=== PATIENT | male | born 1950 | race Hispanic/Latino ===

== ENCOUNTER → 2018-06-15 | Outpatient (CLI) | payer OTHER ==
[~2018-06-15] MED LIST: GADOBENATE DIMEGLUMINE 1 ML IV ONE
[2018-06-15 13:43] LABS: BLOOD UREA NITROGEN 16 mg/dL (7-26); BUN/CREATININE RATIO 19 (6-25); CREATININE, SERUM 0.85 mg/dL (0.72-1.25); EST GLOMERULAR FILTRATION RATE > 60 ML/MIN (60-)
--- NOTE | 2018-06-15 21:16 | Diagnostic Imaging Report ---
Bone Scan, delayed phase INDICATION: Enlarged prostate; elevated PSA COMPARISON: None REPORT: Approximately 3 hours following intravenous administration of 27 mCi of Tc-99m MDP, delayed total body images in the anterior and posterior projections and selected spot images were obtained. Markedly increased tracer is seen in the right sternoclavicular joint. Diffusely increased tracer is seen in the mid to lower thoracic spine. Otherwise, distribution of tracer activity is unremarkable throughout the skeletal system. No abnormal accumulation of tracer is seen in the soft tissues or urinary tract. IMPRESSION: No scan evidence of metastatic bone disease. Severe degenerative changes are present in the right sternoclavicular joint and in the thoracic spine. Signed by: Dr. Hali Cuevas M.D. on 06/15/2018 9:13 PM
--- NOTE | 2018-06-16 09:10 | Diagnostic Imaging Report ---
EXAM: MRI Pelvis WITHOUT and WITH Contrast INDICATION: \S\ELEVATED PSA COMPARISON: None. TECHNIQUE: Multiplanar and multisequence imaging was performed of the pelvis from below the inferior poles of the kidneys to the lesser trochanters without and with contrast. T1-weighted, T2-weighted images, T1-weighted in and [id number]. Dynamic, post gadolinium T1-weighted spoiled gradient echo scans. Routine protocol was performed. IV Contrast: 15 mL of MultiHance gadolinium Oral Contrast: None Medications: None COMPLICATIONS: None FINDINGS: This is a MR pelvis without dedicated MR prostate protocol. PROSTATE: Size of total gland: 4.5 x 5.2 x 3.7 cm. Transitional zone: Not well visualized. BPH: No significant BPH Median lobe: 1.0 x 1.4 cm. Previous TURP: None Focal calcifications are difficult to visualize by MRI On arterial phase postcontrast series 9: 3.5 x 3.1 cm infiltrative mass involving the left base peripheral zone medially and laterally. This extends to the right medial base prostate. This also extends centrally into the transitional zone. There is extracapsular extension involving the neurovascular bundles. This also extends into the left seminal vesicle and likely into portions of the right seminal vesicle. SEMINAL VESICLES: Malignant involvement involving the left seminal vesicle and likely portions of the right seminal vesicle. BLADDER: Hughes catheter is in place. Otherwise unremarkable. GI TRACT: No abnormal distention, wall thickening, or evidence of bowel obstruction. There are diverticula within the colon without evidence of diverticulitis. Appendix is normal. RECTUM: Rectum and mesorectum are unremarkable. LYMPH NODES: Left internal iliac adenopathy measuring 1.6 x 2.2 cm (series 9, image 97) and 1.5 x 1.5 cm (series 9 image 93). VESSELS: Unremarkable. PERITONEUM / RETROPERITONEUM: No free air or fluid. BONES: Unremarkable. SOFT TISSUES: Unremarkable. IMPRESSION: 1. 3.5 x 3.1 cm infiltrative mass involving the left base of the prostate peripheral zone extends centrally into the transitional zone and into the right peripheral zone. 2. Extra capsular extension with neurovascular bundle involvement. Involvement of the left seminal vesicle and likely the right seminal vesicle. 3. Left internal iliac lymphadenopathy. Signed by: Dr. Ray Serna M.D. on 06/16/2018 9:07 AM
== END ==
LOC: NM 12:42
PROVIDERS: ATTEND Urology
DX: R97.20 Elevated prostate specific antigen [PSA] (principal)
CPT/HCPCS: 36415; 72197; 78306; 82565; 84520; A9503

== ENCOUNTER → 2018-06-24 | Outpatient (CLI) | payer OTHER ==
[~2018-06-24] MED LIST changes: -GADOBENATE DIMEGLUMINE 1 ML IV ONE; +IOPAMIDOL 370 MG/ML 200 ML INFUS..BTL INJ ONE; +SODIUM CHLORIDE 0.9% 50ML 50 ML ONE
--- NOTE | 2018-06-24 16:05 | Diagnostic Imaging Report ---
EXAMINATION: CT of the abdomen and pelvis with contrast. TECHNIQUE: Spiral CT images of the pelvis were performed from the iliac crests to the lesser trochanters after the intravenous administration of 100 cc Isovue-370 Coronal and sagittal reformatted images were obtained. COMPARISON: MRI pelvis 06/15/2018 CLINICAL HISTORY:Elevated PSA DISCUSSION: ABDOMEN/PELVIS: PELVIC ORGANS/BLADDER: The urinary bladder is collapsed around a Hughes catheter with wall thickening. 3.5 cm enhancing mass centered in the left hemiprostate with extension to the seminal vesicles and bladder base is better delineated on comparison MRI examination. Hazy stranding in the periprosthetic and perivesicular fat is again noted. PERITONEUM/RETROPERITONEUM: No free air or fluid. LYMPH NODES: Avidly enhancing bilateral internal and left external iliac lymph nodes are noted measuring up to 2 cm short axis. One of the left iliac chain lymph nodes appears centrally necrotic, as seen on series 2 image 25. Right internal iliac lymph node chain measure up to 1.3 cm short axis (series 2 image 30). VESSELS: Mild atherosclerotic calcification of the iliac arterial systems without significant stenosis. GI TRACT: Visualized portions of the large bowel are notable for innumerable sigmoid diverticula without wall thickening or adjacent inflammation. No small bowel dilatation to suggest obstruction. BONES AND SOFT TISSUE: No osseous destructive lesions. Degenerative disc changes and facet arthropathy at the lumbosacral junction. Right-sided L5 pars interarticularis defect. No focal soft tissue abnormalities. IMPRESSION: Overall stable findings of presumed locally invasive prostate adenocarcinoma with metastatic regional lymphadenopathy when accounting for modality differences compared to MRI of the pelvis 06/15/2018. Urinary bladder wall thickening is likely reactive to presence of Hughes catheter. Correlation with urinalysis may be of benefit. Large bowel diverticulosis without evidence of diverticulitis. Signed by: Dr. Arslan Eaton M.D. on 06/24/2018 4:02 PM
== END ==
LOC: CT 14:14
PROVIDERS: ATTEND Urology
DX: R97.20 Elevated prostate specific antigen [PSA] (principal)
CPT/HCPCS: 72193; Q9967

== ENCOUNTER → 2018-07-05 | Outpatient (CLI) | payer OTHER ==
[~2018-07-05] MED LIST changes: +FENTANYL CITRATE/PF 100MCG/2 ML INJ ONE; +GELATIN SPONGE 12-7MM ONE; -IOPAMIDOL 370 MG/ML 200 ML INFUS..BTL INJ ONE; +LIDOCAINE HCL 1% LOCAL INJ 20 ML VIAL ONE; +MIDAZOLAM HCL 2 MG/2 ML VIAL ONE; +SODIUM CHLORIDE 0.9% 500ML 500 ML ONE; -SODIUM CHLORIDE 0.9% 50ML 50 ML ONE
--- NOTE | 2018-07-05 11:47 | Diagnostic Imaging Report ---
Date and Time: 07/05/2018 Procedure: CT-guided fine-needle aspiration and core biopsies of a right external iliac lymph node machine operator hop picker: Dr. Eaton Pre-operative diagnosis: Prostate cancer, pelvic lymphadenopathy Post-operative diagnosis: Prostate cancer, pelvic lymphadenopathy Conscious Sedation: Versed 1 mg and Fentanyl 50 mcg. The patient's heart rate and pulse oximetry were continuously monitored by the interventional radiology nurse. Blood pressure was monitored at 5 minute intervals. Total intra service time for sedation: 45 minutes Additional Medications: Lidocaine 1% for local anesthesia Fluoroscopy time: 0 Contrast used: None Estimated blood loss: Less than 10 cc Specimens: Fine-needle aspiration specimens x2, core biopsy specimens x6 Implants: None Blood products administered: None Condition at completion of procedure: Stable Disposition: Radiology holding DISCUSSION: Informed consent for the procedure was obtained and documented in the medical record after discussion of risks and benefits. The patient was placed in the supine position on the CT couch. A marker grid over the right anterior hip was placed and limited CT evaluation of the pelvis confirmed a suitable percutaneous approach to a mildly prominent, and enhancing right external iliac lymph node identified on comparison pelvic CT 06/24/2018. The overlying skin was prepped and draped in the standard sterile fashion. 1% lidocaine was infiltrated into the skin and subcutaneous tissues for local anesthesia. Then under intermittent CT guidance, a 16-gauge needle guide was advanced to the lateral margin of the lymph node. Subsequently, 2 fine-needle aspiration specimens were obtained coaxially using 20-gauge Chiba needles. Specimens were submitted to on-site cytopathology personnel. Then a total of 6 core biopsy specimens were obtained using an 18-gauge, 2 cm throw core biopsy apparatus, with sales representative graphic art CT images documenting biopsy needle trough position within the lymph node stored to the medical record. Specimens were submitted in formalin for histologic analysis. At the conclusion of sampling the needle was removed and a sterile dressing was applied. The patient tolerated the procedure well without immediate complication. FINDINGS: Mildly prominent right external iliac lymph node. IMPRESSION: Successful CT-guided fine-needle aspiration and core biopsy of a mildly enlarged right external iliac lymph node in the setting of prostate cancer. Signed by: Dr. Arslan Eaton M.D. on 07/05/2018 11:44 AM
--- NOTE | 2018-07-05 11:47 | Diagnostic Imaging Report ---
Date and Time: 07/05/2018 Procedure: CT-guided fine-needle aspiration and core biopsies of a right external iliac lymph node steam tank operator: Dr. Eaton Pre-operative diagnosis: Prostate cancer, pelvic lymphadenopathy Post-operative diagnosis: Prostate cancer, pelvic lymphadenopathy Conscious Sedation: Versed 1 mg and Fentanyl 50 mcg. The patient's heart rate and pulse oximetry were continuously monitored by the interventional radiology nurse. Blood pressure was monitored at 5 minute intervals. Total intra service time for sedation: 45 minutes Additional Medications: Lidocaine 1% for local anesthesia Fluoroscopy time: 0 Contrast used: None Estimated blood loss: Less than 10 cc Specimens: Fine-needle aspiration specimens x2, core biopsy specimens x6 Implants: None Blood products administered: None Condition at completion of procedure: Stable Disposition: Radiology holding DISCUSSION: Informed consent for the procedure was obtained and documented in the medical record after discussion of risks and benefits. The patient was placed in the supine position on the CT couch. A marker grid over the right anterior hip was placed and limited CT evaluation of the pelvis confirmed a suitable percutaneous approach to a mildly prominent, and enhancing right external iliac lymph node identified on comparison pelvic CT 06/24/2018. The overlying skin was prepped and draped in the standard sterile fashion. 1% lidocaine was infiltrated into the skin and subcutaneous tissues for local anesthesia. Then under intermittent CT guidance, a 16-gauge needle guide was advanced to the lateral margin of the lymph node. Subsequently, 2 fine-needle aspiration specimens were obtained coaxially using 20-gauge Chiba needles. Specimens were submitted to on-site cytopathology personnel. Then a total of 6 core biopsy specimens were obtained using an 18-gauge, 2 cm throw core biopsy apparatus, with welding equipment sales representative CT images documenting biopsy needle trough position within the lymph node stored to the medical record. Specimens were submitted in formalin for histologic analysis. At the conclusion of sampling the needle was removed and a sterile dressing was applied. The patient tolerated the procedure well without immediate complication. FINDINGS: Mildly prominent right external iliac lymph node. IMPRESSION: Successful CT-guided fine-needle aspiration and core biopsy of a mildly enlarged right external iliac lymph node in the setting of prostate cancer. Signed by: Dr. Arslan Eaton M.D. on 07/05/2018 11:44 AM
--- NOTE | 2018-07-05 11:47 | Diagnostic Imaging Report ---
Date and Time: 07/05/2018 Procedure: CT-guided fine-needle aspiration and core biopsies of a right external iliac lymph node drum barker operator: Dr. Eaton Pre-operative diagnosis: Prostate cancer, pelvic lymphadenopathy Post-operative diagnosis: Prostate cancer, pelvic lymphadenopathy Conscious Sedation: Versed 1 mg and Fentanyl 50 mcg. The patient's heart rate and pulse oximetry were continuously monitored by the interventional radiology nurse. Blood pressure was monitored at 5 minute intervals. Total intra service time for sedation: 45 minutes Additional Medications: Lidocaine 1% for local anesthesia Fluoroscopy time: 0 Contrast used: None Estimated blood loss: Less than 10 cc Specimens: Fine-needle aspiration specimens x2, core biopsy specimens x6 Implants: None Blood products administered: None Condition at completion of procedure: Stable Disposition: Radiology holding DISCUSSION: Informed consent for the procedure was obtained and documented in the medical record after discussion of risks and benefits. The patient was placed in the supine position on the CT couch. A marker grid over the right anterior hip was placed and limited CT evaluation of the pelvis confirmed a suitable percutaneous approach to a mildly prominent, and enhancing right external iliac lymph node identified on comparison pelvic CT 06/24/2018. The overlying skin was prepped and draped in the standard sterile fashion. 1% lidocaine was infiltrated into the skin and subcutaneous tissues for local anesthesia. Then under intermittent CT guidance, a 16-gauge needle guide was advanced to the lateral margin of the lymph node. Subsequently, 2 fine-needle aspiration specimens were obtained coaxially using 20-gauge Chiba needles. Specimens were submitted to on-site cytopathology personnel. Then a total of 6 core biopsy specimens were obtained using an 18-gauge, 2 cm throw core biopsy apparatus, with customer field representative CT images documenting biopsy needle trough position within the lymph node stored to the medical record. Specimens were submitted in formalin for histologic analysis. At the conclusion of sampling the needle was removed and a sterile dressing was applied. The patient tolerated the procedure well without immediate complication. FINDINGS: Mildly prominent right external iliac lymph node. IMPRESSION: Successful CT-guided fine-needle aspiration and core biopsy of a mildly enlarged right external iliac lymph node in the setting of prostate cancer. Signed by: Dr. Arslna Eaton M.D. on 07/05/2018 11:44 AM
== END ==
LOC: CT 07:52
PROVIDERS: ATTEND Urology
DX: R97.20 Elevated prostate specific antigen [PSA] (principal)
CPT/HCPCS: 10022; 38510; 77012; 88112; 88304; 88305; J2001; J2250; J7040; 38505; 88172; 88173; 88342; 99152; 99153

== ENCOUNTER 2018-07-16 21:33 | Emergency (ER) | payer OTHER ==
[~2018-07-16] VITALS: Ht 175.3 cm; Wt 74.8 kg
--- OUTSIDE RECORDS SUMMARY | 2018-07-16 21:36 | XMS REPORT ---
Author Author [facility] Address Unknown Phone Unavailable Care Team Providers Care Hospice Administrator Name Role Phone ARACELI CASAS Unavailable Unavailable Payers Payer Name Policy Type Policy Number Effective Date Expiration Date Problems This patient has no known problems. Allergies, Adverse Reactions, Alerts Allergy Name Allergy Type Status Severity Reaction(s) Onset Date Inactive Date Treating Clinician Comments No Known Allergies DA Active U 2018-06-14 00:00:00 No Known Allergies DA Active U 2018-06-13 00:00:00 Medications This patient has no known medications. Results Test Description Test Time Test Comments Text Results Atomic Results Result Comments BIOPSY LYMPH NODE 2018-07-05 11:36:00 [place] [address] Patient Name: OVIDIO MONTEJO MR #: [id number] : 1950 Age/Sex: 68/M Req #: [id number] [facility] Physician: Ordered by: ARACELI CASAS MD Report #: [id number] Location: [place] Room/Bed: Procedure: [id number] IR/BIOPSY LYMPH NODE Exam Date: 07/05/18 Exam Time: 941 REPORT STATUS: Signed Date and Time: 07/05/2018 Procedure: CT-guided fine-needle aspiration and core biopsies of a right external iliac lymph node chopper operator: Dr. Petit Pre-operative diagnosis: Prostate cancer, pelvic lymphadenopathy Post-operative diagnosis: Prostate cancer, pelvic lymphadenopathy Conscious Sedation: Versed 1 mg and Fentanyl 50 mcg. The patient's heart rate and pulse oximetry were continuously monitored by the interventional radiology nurse. Blood pressure was monitored at 5 minute intervals. Total intra service time for sedation: 45 minutes Additional Medications: Lidocaine 1% for local anesthesia Fluoroscopy time: 0 Contrast used: None Estimated blood loss: Less than 10 cc Specimens: Fine-needle aspiration specimens x2, core biopsy specimens x6 Implants: None Blood products administered: None Condition at completion of procedure: Stable Disposition: Radiology holding DISCUSSION: Informed consent for the procedure was obtained and documented in the medical record after discussion of risks and benefits. The patient was placed in the supine position on the CT couch. A marker grid over the right anterior hip was placed and limited CT evaluation of the pelvis confirmed a suitable percutaneous approach to a mildly prominent, and enhancing right external iliac lymph node identified on comparison pelvic CT 06/24/2018. The overlying skin was prepped and draped in the standard sterile fashion. 1% lidocaine was infiltrated into the skin and subcutaneous tissues for local anesthesia. Then under intermittent CT guidance, a 16-gauge needle guide was advanced to the lateral margin of the lymph node. Subsequently, 2 fine-needle aspiration specimens were obtained coaxially using 20-gauge Chiba needles. Specimens were submitted to on-site cytopathology personnel. Then a total of 6 core biopsy specimens were obtained using an 18-gauge, 2 cm throw core biopsy apparatus, with residential sales representative CT images documenting biopsy needle trough position within the lymph node stored to the medical record. Specimens were submitted in formalin for histologic analysis. At the conclusion of sampling the needle was removed and a sterile dressing was applied. The patient tolerated the procedure well without immediate complication. FINDINGS: Mildly prominent right external iliac lymph node. IMPRESSION: Successful CT- guided fine-needle aspiration and core biopsy of a mildly enlarged right external iliac lymph node in the setting of prostate cancer. Signed by: Dr. Timbo Petit M.D. on 07/05/2018 11:44 AM Dictated By: TIMBO PETIT MD 1144 Transcribed By: CLEM on 07/05/18 1144 COPY TO: ARACELI CASAS MD CT GUIDED BIOPSY/ASPIR/INJ/MISTI 2018-07-05 11:36:00 [place] [address] Patient Name: OVIDIO MONTEJO MR #: [id number] : 1950 Age/Sex: 68/M Req #: [id number] Adm Physician: Ordered by: ARACELI CASAS MD Report #: [id number] Location: CT Room/Bed: Procedure: [id number] CT/CT GUIDED BIOPSY/ASPIR/INJ/MISTI Exam Date: 07/05/18 Exam Time: 941 REPORT STATUS: Signed Date and Time: 07/05/2018 Procedure: CT-guided fine-needle aspiration and core biopsies of a right external iliac lymph node chopper operator: Dr. Petit Pre-operative diagnosis: Prostate cancer, pelvic lymphadenopathy Post-operative diagnosis: Prostate cancer, pelvic lymphadenopathy Conscious Sedation: Versed 1 mg and Fentanyl 50 mcg. The patient's heart rate and pulse oximetry were continuously monitored by the interventional radiology nurse. Blood pressure was monitored at 5 minute intervals. Total intra service time for sedation: 45 minutes Additional Medications: Lidocaine 1% for local anesthesia Fluoroscopy time: 0 Contrast used: None Estimated blood loss: Less than 10 cc Specimens: Fine-needle aspiration specimens x2, core biopsy specimens x6 Implants: None Blood products administered: None Condition at completion of procedure: Stable Disposition: Radiology holding DISCUSSION: Informed consent for the procedure was obtained and documented in the medical record after discussion of risks and benefits. The patient was placed in the supine position on the CT couch. A marker grid over the right anterior hip was placed and limited CT evaluation of the pelvis confirmed a suitable percutaneous approach to a mildly prominent, and enhancing right external iliac lymph node identified on comparison pelvic CT 06/24/2018. The overlying skin was prepped and draped in the standard sterile fashion. 1% lidocaine was infiltrated into the skin and subcutaneous tissues for local anesthesia. Then under intermittent CT guidance, a 16-gauge needle guide was advanced to the lateral margin of the lymph node. Subsequently, 2 fine-needle aspiration specimens were obtained coaxially using 20-gauge Chiba needles. Specimens were submitted to on-site cytopathology personnel. Then a total of 6 core biopsy specimens were obtained using an 18-gauge, 2 cm throw core biopsy apparatus, with residential sales representative CT images documenting biopsy needle trough position within the lymph node stored to the medical record. Specimens were submitted in formalin for histologic analysis. At the conclusion of sampling the needle was removed and a sterile dressing was applied. The patient tolerated the procedure well without immediate complication. FINDINGS: Mildly prominent right external iliac lymph node. IMPRESS ION: Successful CT-guided fine-needle aspiration and core biopsy of a mildly enlarged right external iliac lymph node in the setting of prostate cancer. Signed by: Dr. Timbo Petit M.D. on 07/05/2018 11:44 AM Dictated By: TIMBO PETIT MD 1144 Transcribed By: CLEM on 07/05/18 1144 COPY TO: ARACELI CASAS MD FNA WITH IMAGE GUIDANCE 2018-07-05 11:36:00 [place] [address] Patient Name: OVIDIO MONTEJO MR #: [id number] : 1950 Age/Sex: 68/M Req #: [id number] Adm Physician: Ordered by: ARACELI CASAS MD Report #: [id number] Location: [place] Room/Bed: Procedure: [id number] IR/FNA WITH IMAGE GUIDANCE Exam Date: 07/05/18 Exam Time: 941 REPORT STATUS: Signed Date and Time: 07/05/2018 Procedure: CT-guided fine- needle aspiration and core biopsies of a right external iliac lymph node chopper operator: Dr. Petit Pre-operative diagnosis: Prostate cancer, pelvic lymphadenopathy Post-operative diagnosis: Prostate cancer, pelvic lymphadenopathy Conscious Sedation: Versed 1 mg and Fentanyl 50 mcg. The patient's heart rate and pulse oximetry were continuously monitored by the interventional radiology nurse. Blood pressure was monitored at 5 minute intervals. Total intra service time for sedation: 45 minutes Additional Medications: Lidocaine 1% for local anesthesia Fluoroscopy time: 0 Contrast used: None Estimated blood loss: Less than 10 cc Specimens: Fine-needle aspiration specimens x2, core biopsy specimens x6 Implants: None Blood products administered: None Condition at completion of procedure: Stable Disposition: Radiology holding DISCUSSION: Informed consent for the procedure was obtained and documented in the medical record after discussion of risks and benefits. The patient was placed in the supine position on the CT couch. A marker grid over the right anterior hip was placed and limited CT evaluation of the pelvis confirmed a suitable percutaneous approach to a mildly prominent, and enhancing right external iliac lymph node identified on comparison pelvic CT 06/24/2018. The overlying skin was prepped and draped in the standard sterile fashion. 1% lidocaine was infiltrated into the skin and subcutaneous tissues for local anesthesia. Then under intermittent CT guidance, a 16-gauge needle guide was advanced to the lateral margin of the lymph node. Subsequently, 2 fine-needle aspiration specimens were obtained coaxially using 20-gauge Chiba needles. Specimens were submitted to on-site cytopathology personnel. Then a total of 6 core biopsy specimens were obtained using an 18-gauge, 2 cm throw core biopsy apparatus, with residential sales representative CT images documenting biopsy needle trough position within the lymph node stored to the medical record. Specimens were submitted in formalin for histologic analysis. At the conclusion of sampling the needle was removed and a sterile dressing was applied. The patient tolerated the procedure well without immediate complication. FINDINGS: Mildly prominent right external iliac lymph node. IMPRESSION: Successful CT- guided fine-needle aspiration and core biopsy of a mildly enlarged right external iliac lymph node in the setting of prostate cancer. Signed by: Dr. Timbo Petit M.D. on 07/05/2018 11:44 AM Dictated By: TIMBO PETIT MD 1144 Transcribed By: CLEM on 07/05/18 1144 COPY TO: ARACELI CASAS MD CT PELVIS W 2018-06-24 15:52:00 [place] [address] Patient Name: OVIDIO MONTEJO MR #: [id number] : 1950 Age/Sex: 68/M Req #: [id number] Adm Physician: Ordered by: ARACELI CASAS MD Report #: [id number] Location: CT Room/Bed: Procedure: [id number] CT/CT PELVIS W Exam Date: 06/24/18 Exam Time: 1515 REPORT STATUS: Signed EXAMINATION: CT of the abdomen and pelvis with contrast. TECHNIQUE: Spiral CT images of the pelvis were performed from the iliac crests to the lesser trochanters after the intravenous administration of 100 cc Isovue-370 Coronal and sagittal reformatted images were obtained. COMPARISON: MRI pelvis 06/15/2018 CLINICAL HISTORY:Elevated PSA DISCUSSION: ABDOMEN/PELVIS: PELVIC ORGANS/BLADDER: The urinary bladder is collapsed around a Hughes catheter with wall thickening. 3.5 cm enhancing mass centered in the left hemiprostate with extension to the seminal vesicles and bladder base is better delineated on comparison MRI examination. Hazy stranding in the periprosthetic and perivesicular fat is again noted. PERITONEUM/RETROPERITONEUM: No free air or fluid. LYMPH NODES: Avidly enhancing bilateral internal and left external iliac lymph nodes are noted measuring up to 2 cm short axis. One of the left iliac chain lymph nodes appears centrally necrotic, as seen on series 2 image 25. Right internal iliac lymph node chain measure up to 1.3 cm short axis (series 2 image 30). VESSELS: Mild atherosclerotic calcification of the iliac arterial systems without significant stenosis. GI TRACT: Visualized portions of the large bowel are notable for innumerable sigmoid diverticula without wall thickening or adjacent inflammation. No small bowel dilatation to suggest obstruction. BONES AND SOFT TISSUE: No osseous destructive lesions. Degenerative disc changes and facet arthropathy at the lumbosacral junction. Right-sided L5 pars interarticularis defect. No focal soft tissue abnormalities. IMPRESSION: Overall stable findings of presumed locally invasive prostate adenocarcinoma with metastatic regional lymphadenopathy when accounting for modality differences compared to MRI of the pelvis 06/15/2018. Urinary bladder wall thickening is likely reactive to presence of Hughes catheter. Correlation with urinalysis may be of benefit. Large bowel diverticulosis without evidence of diverticulitis. Signed by: Dr. Timbo Petit M.D. on 06/24/2018 4:02 PM Dictated By: TIMBO PETIT MD 160 Transcribed By: CLEM on 06/24/18 1602 COPY TO: ARACELI CASAS MD MRI PELVIS WOW 2018-06-16 08:52:00 [place] [address] Patient Name: OVIDIO MONTEJO MR #: [id number] : 1950 Age/Sex: 68/M Req #: [id number] Adm Physician: Ordered by: ARACELI CASAS MD Report #: [id number] Location: [place] Room/Bed: Procedure: [id number] MRI/MRI PELVIS WOW Exam Date: Exam Time: REPORT STATUS: Signed EXAM: MRI Pelvis WITHOUT and WITH Contrast INDICATION: S ELEVATED PSA COMPARISON: None. TECHNIQUE: Multiplanar and multisequence imaging was performed of the pelvis from below the inferior poles of the kidneys to the lesser trochanters without and with contrast. T1-weighted, T2-weighted images, T1-weighted in and [id number]. Dynamic, post gadolinium T1-weighted spoiled gradient echo scans. Routine protocol was performed. IV Contrast: 15 mL of MultiHance gadolinium Oral Contrast: None Medications: None COMPLICATIONS: None FINDINGS: This is a MR pelvis without dedicated MR prostate protocol. PROSTATE: Size of total gland: 4.5 x 5.2 x 3.7 cm. Transitional zone: Not well visualized. BPH: No significant BPH Median lobe: 1.0 x 1.4 cm. Previous TURP: None Focal calcifications are difficult to visualize by MRI On arterial phase postcontrast series 9: 3.5 x 3.1 cm infiltrative mass involving the left base peripheral zone medially and laterally. This extends to the right medial base prostate. This also extends centrally into the transitional zone. There is extracapsular extension involving the neurovascular bundles. This also extends into the left seminal vesicle and likely into portions of the right seminal vesicle. SEMINAL VESICLES: Malignant involvement involving the left seminal vesicle and likely portions of the right seminal vesicle. BLADDER: Hughes catheter is in place. Otherwise unremarkable. GI TRACT: No abnormal distention, wall thickening, or evidence of bowel obstruction. There are diverticula within the colon without evidence of diverticulitis. Appendix is normal. RECTUM: Rectum and mesorectum are unremarkable. LYMPH NODES: Left internal iliac adenopathy measuring 1.6 x 2.2 cm (series 9, image 97) and 1.5 x 1.5 cm (series 9 image 93). VESSELS: Unremarkable. PERITONEUM / RETROPERITONEUM: No free air or fluid. BONES: Unremarkable. SOFT TISSUES: Unremarkable. IMPRESSION: 1. 3.5 x 3.1 cm infiltrative mass involving the left base of the prostate peripheral zone extends centrally into the transitional zone and into the right peripheral zone. 2. Extra capsular extension with neurovascular bundle involvement. Involvement of the left seminal vesicle and likely the right seminal vesicle. 3. Left internal iliac lymphadenopathy. Signed by: Dr. Ale Ponce M.D. on 06/16/2018 9:07 AM Dictated By: ALE PONCE MD 6 Transcribed By: CLEM on 06/16/18906 COPY TO: ARACELI CASAS MD BONE and/or JOINT WHOLE BODY 2018-06-15 21:08:00 [place] [address] Patient Name: OVIDIO MONTEJO MR #: [id number] : 1950 Age/Sex: 68/M Req #: [id number] [facility] Physician: Ordered by: ARACELI CASAS MD Report #: [id number] Location: [place] Room/Bed: Procedure: [id number] NM/BONE and/or JOINT WHOLE BODY Exam Date: 06/15/18 Exam Time: 1300 REPORT STATUS: Signed Bone Scan, delayed phase INDICATION: Enlarged prostate; elevated PSA COMPARISON: None REPORT: Approximately 3 hours following intravenous administration of 27 mCi of Tc-99m MDP, delayed total body images in the anterior and posterior projections and selected spot images were obtained. Markedly increased tracer is seen in the right sternoclavicular joint. Diffusely increased tracer is seen in the mid to lower thoracic spine. Otherwise, distribution of tracer activity is unremarkable throughout the skeletal system. No abnormal accumulation of tracer is seen in the soft tissues or urinary tract. IMPRESSION: No scan evidence of metastatic bone disease. Severe degenerative changes are present in the right sternoclavicular joint and in the thoracic spine. Signed by: Dr. Airam Cuevas M.D. on 06/15/2018 9:13 PM Dictated By: AIRAM CUEVAS MD 12 Transcribed By: CLEM on 06/15/182112 COPY TO: ARACELI CASAS MD
[2018-07-17 00:04] LABS: CLARITY,URINE CLOUDY (CLEAR); COLOR,URINE YELLOW (YELLOW)
[2018-07-17 00:05] LABS: BILIRUBIN,URINE NEGATIVE (NEGATIVE); KETONES,URINE NEGATIVE (NEGATIVE); LEUKOCYTE ESTERASE ,URINE 2+ (NEGATIVE); NITRITE,URINE POSITIVE (NEGATIVE); PROTEIN,URINE DIPSTICK 2+ (NEGATIVE); URINE UROBILINOGEN 0.2 mg/dL (0.2 - 1)
[2018-07-17 00:16] LABS: BACTERIA,URINE MANY /HPF; EPITHELIAL CELLS,URINE RARE /LPF; WBC,URINE (MAN) >50 /HPF (0-5)
[2018-07-17] MEDS ORDERED: CEFTRIAXONE SOD 1 GM VIAL IM ONE (00:30)
== END 2018-07-17 01:15 | disposition home or self-care (01) ==
LOC: ER 21:33
DX: R33.9 Retention of urine, unspecified (principal); N40.1 Benign prostatic hyperplasia with lower urinary tract symptoms; N30.91 Cystitis, unspecified with hematuria
CPT/HCPCS: 51702; 81001; 87086; 87186; 99282; J0696; 51700

== ENCOUNTER 2020-05-18 22:28 | Emergency (ER) | payer MEDICARE ==
[~2020-05-18] VITALS: Ht 175.3 cm; Wt 74.8 kg
--- NOTE | 2020-05-18 22:48 | NUR ---
PT TO RESTROOM COMPLETED TRIAGE.
--- OUTSIDE RECORDS SUMMARY | 2020-05-18 23:35 | XMS REPORT | Continuity of Care Document ---
Author Author [facility] t Organization [facility] Address [address] [place] [address] Phone Unavailable Care Team Providers Care [employer] Installer Name Role Phone ARACELI CASAS Attphys Unavailable Payers Payer Name Policy Type Policy Number Effective Date Expiration Date S ource Problems This patient has no known problems. Allergies, Adverse Reactions, Alerts Allergy Name Allergy Type Status Severity Reaction(s) Onset Date Inacti ve Date Treating Clinician Comments Source No Known Allergies DA Active U 2018-06-14 00:00:00 [facility] No Known Allergies DA Active U 2018-06-13 00:00:00 [facility] Medications This patient has no known medications. Procedures This patient has no known procedures. Results Test Description Test Time Test Comments Results Result Comments Source US TESTICULAR 2019-09-22 12:01:00 [facility] [address] [place] [address] Patient Name: OVIDIO MONTEJO MR #: [id number] : 1950 Age/Sex: 69/M Req #: [id number] Adm Physician: Ordered by: ARACELI CASAS MD Report #: [id number] Location: Room/Bed: Procedure: [id number] US/US TESTICULAR Exam Date: 09/22/19 Exam Time: 1053 REPORT STATUS: Signed Exam: Testicular ultrasound. Clinical History: Chronic testicular pain Findings: Sonographic evaluation of the testicles. Both testes are normal in echogenicity and size without intratesticular mass. Normal symmetric blood flow to both testes. No evidence of testicular torsion. Right: The right testicle measures 3.2 x 1.3 x 2.2 cm and appears unremarkable. The right epididymis measures 0.7 x 0.7 x 0.9 cm and appears unremarkable. Trace right hydrocele. No varicocele. Left: The left testicle measures 2.9 x 1.4 x 2.3 cm and appears unremarkable. The left epididymis measures 0.7 x 0.6 x 0.7 cm and appears unremarkable. Trace left hydrocele. No varicocele. Impression: No testicular torsion or intratesticular mass. Trace right and left hydrocele. Signed by: Merced Muro MD on 09/22/2019 12:03 PM Dictated By: MERCED MURO MD 7 Transcribed By: CLEM on 09/26/19907 COPY TO: ARACELI CASAS MD TESTICULAR DOPPLER [facility] 2019-09-22 12:01:00 [place] [address] Patient Name: OVIDIO MONTEJO MR #: [id number] : 1950 Age/Sex: 69/M Req #: [id number] Adm Physician: Ordered by: ARACELI CASAS MD Report #: [id number] Location: Room/Bed: Procedure: [id number] US/US TESTICULAR DOPPLER [facility] Exam Date: 09/22/19 Exam Time: 1053 REPORT STATUS: Signed Exam: Testicular ultrasound. Clinical History: Chronic testicular pain Findings: Sonographic evaluation of the testicles. Both testes are normal in echogenicity and size without intratesticular mass. Normal symmetric blood flow to both testes. No evidence of testicular torsion. Right: The right testicle measures 3.2 x 1.3 x 2.2 cm and appears unremarkable. The right epididymis measures 0.7 x 0.7 x 0.9 cm and appears unremarkable. Trace right hydrocele. No varicocele. Left: The left testicle measures 2.9 x 1.4 x 2.3 cm and appears unremarkable. The left epididymis measures 0.7 x 0.6 x 0.7 cm and appears unremarkable. Trace left hydrocele. No varicocele. Impression: No testicular torsion or intratesticular mass. Trace right and left hydrocele. Signed by: Merced Muro MD on 09/22/2019 12:03 PM Dictated By: MERCED MURO MD 7 Transcribed By: CLEM on 09/26/19907 COPY TO: ARACELI CASAS MD BIOPSY LYMPH NODE 2018-07-05 11:36:00 [place] [address] Patient Name: OVIDIO MONTEJO MR #: [id number] : 1950 Age/Sex: 68/M Req #: [id number] Adm Physician: Ordered by: ARACELI CASAS MD Report #: [id number] Location: [place] Room/Bed: Procedure: [id number] IR/BIOPSY LYMPH NODE Exam Date: 07/05/18 Exam Time: 941 REPORT STATUS: Signed Date and Time: 07/05/2018 Procedure: CT-guided fine-needle aspiration and core biopsies of a right external iliac lymph node chamfering machine operator: Dr. Petit Pre-operative diagnosis: Prostate cancer, [...] 2 cm throw core biopsy apparatus, with circulation sales representative CT images documenting biopsy needle [...] 11:44 AM Dictated By: TIMBO PETIT MD Transcribed By: CLEM on 07/05/18 1144 COPY TO: ARACELI CASAS MD CT GUIDED BIOPSY/ASPIR/INJ/MISTI 2018-07-05 11:36:00 [place] [address] Patient Name: OVIDIO MONTEJO MR #: [id number] : 1950 Age/Sex: 68/M Req #: [id number] Adm Physician: Ordered by: ARACELI CASAS MD Report #: [id number] Location: CT Room/Bed: Procedure: [id number] CT/CT GUIDED BIOPSY/ASPIR/INJ/MISTI Exam Date: 07/05/18 Exam Time: 941 REPORT STATUS: Signed Date and Time: 07/05/2018 Procedure: CT-guided fine-needle aspiration and core biopsies of a right external iliac lymph node chamfering machine operator: Dr. Petit Pre-operative diagnosis: Prostate cancer, [...] 2 cm throw core biopsy apparatus, with circulation sales representative CT images documenting biopsy needle [...] MD FNA WITH IMAGE GUIDANCE 2018-07-05 11:36:00 [place] [address] Patient Name: OVIDIO MONTEJO MR #: [id number] : 1950 Age/Sex: 68/M Req #: [id number] Adm Physician: Ordered by: ARACELI CASAS MD Report #: [id number] Location: [place] Room/Bed: Procedure: [id number] IR/FNA WITH IMAGE GUIDANCE Exam Date: 07/05/18 Exam Time: 941 REPORT STATUS: Signed Date and Time: 07/05/2018 Procedure: CT-guided fine- needle aspiration and core biopsies of a right external iliac lymph node chamfering machine operator: Dr. Petit Pre-operative diagnosis: Prostate cancer, [...] 2 cm throw core biopsy apparatus, with circulation sales representative CT images documenting biopsy needle [...] CASAS MD CT PELVIS W 2018-06-24 15:52:00 [place] [address] Patient Name: OVIDIO MONTEJO MR #: [id number] : 1950 Age/Sex: 68/M Req #: [id number] Adm Physician: Ordered by: ARACELI CASAS MD Report #: [id number] Location: CT Room/Bed: Procedure: [id number] CT/CT PELVIS W Exam Date: 06/24/18 Exam [...] 4:02 PM Dictated By: TIMBO PETIT MD 1602 Transcribed By: CLEM on 06/24/18 1602 COPY TO: ARACELI CASAS MD MRI PELVIS [facility] 2018-06-16 08:52:00 [place] [address] Patient Name: OVIDIO MONTEJO MR #: [id number] : 1950 Age/Sex: 68/M Req #: [id number] Adm Physician: Ordered by: ARACELI CASAS MD Report #: [id number] Location: [place] Room/Bed: Procedure: [id number] MRI/MRI PELVIS WOW Exam Date: Exam Time: REPORT STATUS: Signed EXAM: MRI Pelvis WITHOUT and WITH Contrast INDICATION: S ELEVATED PSA COMPARISON: None. TECHNIQUE: Multiplanar and multisequence imaging was performed of the pelvis from below the inferior poles of the kidneys to the lesser trochanters without and with contrast. T1-weighted, T2-weighted images, T1-weighted in and [id number]. Dynamic, post gadolinium T1-weighted spoiled gradient echo [...] BONE and/or JOINT WHOLE BODY 2018-06-15 21:08:00 [place] [address] Patient Name: OVIDIO MONTEJO MR #: [id number] : 1950 Age/Sex: 68/M Req #: [id number] Adm Physician: Ordered by: ARACELI CASAS MD Report #: [id number] Location: [place] Room/Bed: Procedure: [id number] NM/BONE and/or JOINT WHOLE BODY Exam Date: [...]
--- NOTE | 2020-05-19 00:40 | NUR ---
APPLIED LEG BAG. PT STATES HE KNOWS HOW TO USE IT AND STATES UNDERSTANDING OF INSTRUCTIONS ON CARE OF BAG AND CATH.
--- NOTE | 2020-05-19 00:41 | NUR ---
TOTAL URINE OUTPUT 1300 CC
[2020-05-19 00:44] VITALS: BP 174/86
--- NOTE | 2020-05-19 00:56 | Emergency Department Note ---
History of Present Illnes History of Present Illness Chief Complaint: Genitourinary History of Present Illness This is a 70 year old male who presents with a chief complaint of ur inary retention since approximately 1600 today. The patient has a history of prostate cancer, which is being treated with hormone therapy. He had a similar problems with urinary retention approximately 2 years ago related to enlarged prostate from prostate cancer which was relieved with prostate surgery in [place]. He's had no problems with urinary retention since his surgery until today. He denies a fever or chills. He denies any dysuria. He's had frequency and urgency over the last 2 weeks. He denies any hematuria. He denies any new medications. 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 Any updates have been documented here. Past Medical History Recent Fever: No Clinical Suspicion of Infectio: No New/Unexplained Change in Ment: No Past Medical History: None Other Medical History: PROSTATE CA Past Surgical History: Appendectomy Other Surgery: PROSTATE CA SURG. IN [place] Social History Smoking Cessation: Current every day smoker Alcohol Use: Occasional Any Illegal Drug Use: No Physically hurt or threatened: No Other Last Tetanus: UNK Any Pre-Existing Lines (PICC,: No Review of Systems Review of Systems Constitutional: Denies chills, Denies fever EENTM: Denies nose congestion, Denies throat pain Cardiovascular: Denies chest pain, Denies palpitations Respiratory: Reports no symptoms Gastrointestinal: Denies abdominal pain, Denies constipation, Denies diarrhea, Denies nausea, Denies vomiting Genitourinary: Reports as per HPI Musculoskeletal: Reports no symptoms Integumentary: Denies rash Neurological: Denies numbness, Denies tingling, Denies weakness Psychological: Reports no symptoms Hematological/Lymphatic: Reports no symptoms Physical Exam Related Data Allergies: Coded Allergies: No Known Allergies (Unverified , 07/16/18) Triage Vital Signs Vital Signs Date Time Temp Pulse Resp B/P (MAP) Pulse Ox O2 Delivery O2 Flow Rate FiO2 05/18/20 22:36 97.9 76 18 190/91 98 Physical Exam CONSTITUTIONAL Constitutional: Present well-developed HENT HENT: Present normocephalic, Present atraumatic HENT L/R: Present left ext ear normal, Present right ext ear normal EYES Eyes: Reports PERRL, Reports conjunctivae normal NECK Neck: Present ROM normal PULMONARY CARDIOVASCULAR Cardiovascular: Present regular rhythm, Present heart sounds normal, Present capillary refill normal, Present normal rate GASTROINTESTINAL Abdominal: Present soft, Present nontender, Present bowel sounds normal, Present other (Cardenas in place by the time of my exam. Bladder not distented. Hematuria in cardenas bag) GENITOURINARY SKIN Skin: Absent rash MUSCULOSKELETAL Musculoskeletal: Present ROM normal NEUROLOGICAL Neurological: Present alert, Present oriented x 3, Present no gross motor or sensory deficits PSYCHOLOGICAL Psychological: Present mood/affect normal, Present judgement normal Results Laboratory Laboratory comments UA: Vamshi & Nit negative, large blood, small bili, > protein, glu and ketones negative Assessment & Plan Medical Decision Making MDM Patient with acute urinary retention relieved with cardenas. Gross hematuria in cardenas bag differential includes, but not limited to trauma from cardenas placement, bladder Ca, prostate Ca. Urine cleared while in ED, does not require 3-way cardenas. Given strict return precautions and will promptly f/u with his urologist. Reassessment Reassessment Symptoms and BP improved after cardenas Assessment & Plan Final Impression: (1) Prostate cancer (2) Urinary retention Depart Disposition: HOME, SELF-CARE Last Vital Signs Date Time Temp Pulse Resp B/P (MAP) Pulse Ox O2 Delivery O2 Flow Rate FiO2 05/18/20 22:36 97.9 76 18 190/91 98 YON HUSSEIN MD May 19, 2020 00:46
== END 2020-05-19 00:44 | disposition home or self-care (01) ==
LOC: FSED 23:32
DX: R33.9 Retention of urine, unspecified (principal); Z85.46 Personal history of malignant neoplasm of prostate; F17.210 Nicotine dependence, cigarettes, uncomplicated
CPT/HCPCS: 51700; 82553; 99282

== ENCOUNTER 2020-06-03 22:09 | Emergency (ER) | payer MEDICARE ==
[~2020-06-03] VITALS: Ht 162.6 cm; Wt 74.8 kg
--- NOTE | 2020-06-03 22:18 | Emergency Department Note ---
History of Present Illnes History of Present Illness Chief Complaint: "cardenas isn't draining." History of Present Illness This is a 70 year old male, with a history of prostate cancer, who was seen here on 05/18/2020 due to urinary retention, and a Cardenas catheter was placed at that time. The catheter has remained in place, but over the past 4 hours patient has not had any urinary drainage from the catheter. He is having some suprapubic discomfort, and his urine is dark. Patient was seen in [place] by the doctor who did his prostate cancer surgery 1 week ago, and patient was reportedly placed on "some antibiotic and medicine that might change the color of his urine," but the family does not have the medications with them. The urine is dark, and there has also been some blood present. Patient denies any fever, chills, nausea, vomiting, back pain, or abdominal pain, other than the suprapubic discomfort over the past 4 hours. He states that "he feels good." Meds. 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 (patient's adult son is present and assists with any necessary translation.) Onset (how long ago): hour(s) (4) Location: bladder Quality: mild cramping Radiation: Reports non-radiation Severity: moderate Onset quality: sudden Duration (how long): hour(s) (4) Timing of current episode: constant Progression: unchanged Chronicity: recurrent Context: Reports new medications (see HPI for meds from [place]); Denies recent illness, Denies recent surgery (prostate surgery @ 2 years ago; ), Denies trauma/injury Relieving factors: none Exacerbating factors: none Associated symptoms: Denies confusion, Denies fever/chills, Denies malaise, Denies nausea/vomiting Treatments prior to arrival: none Risk factors: Recent history of Prostate Cancer Past Medical/Family History Physician Review I have reviewed the patient's past medical and family history. Any updates have been documented here. Past Medical History Recent Fever: No Clinical Suspicion of Infectio: Yes (urine suspicious for UTI) New/Unexplained Change in Ment: No Past Medical History: Cancer (Prostate Cancer - dx 2017;) Other Medical History: PROSTATE CA Past Surgical History: Appendectomy Other Surgery: PROSTATE CA SURG. IN [place] - 2018 Social History Smoking Cessation: Current every day smoker Counseling Performed: Yes Alcohol Use: Occasional Any Illegal Drug Use: No TB Exposure/Symptoms: No Physically hurt or threatened: No Family History Family history of heart diseas: No Other Last Tetanus: UNK Any Pre-Existing Lines (PICC,: No Is patient up to date on immun: No Review of Systems Review of Systems Constitutional: Denies chills, Denies fever, Denies malaise EENTM: Reports no symptoms Cardiovascular: Reports no symptoms Respiratory: Denies cough, Denies dyspnea Gastrointestinal: Reports abdominal pain (mild suprapubic discomfort); Denies constipation, Denies diarrhea, Denies nausea, Denies vomiting Genitourinary: Reports hematuria, Reports other (pt has a fley catheter in place;); Denies pain Musculoskeletal: Reports no symptoms Integumentary: Reports no symptoms Neurological: Reports no symptoms Review of other systems: All other systems negative Physical Exam Related Data Allergies: Coded Allergies: No Known Allergies (Unverified , 07/16/18) Vital signs reviewed: Yes Physical Exam CONSTITUTIONAL Constitutional: Present well-developed, Present well-nourished; Absent distressed, Absent ill appearing HENT HENT: Present normocephalic, Present atraumatic, Present oropharynx clear/moist, Present nose normal HENT L/R: Present left ext ear normal, Present right ext ear normal EYES Eyes: Reports PERRL, Reports conjunctivae normal NECK Neck: Present ROM normal PULMONARY Pulmonary: Present effort normal, Present breath sounds normal CARDIOVASCULAR Cardiovascular: Present regular rhythm, Present heart sounds normal, Present capillary refill normal, Present normal rate GASTROINTESTINAL Abdominal: Present soft, Present bowel sounds normal, Present tender (mild supraubic ttp, resolved after new cardenas placed;) GENITOURINARY Genitourinary: Present exam deferred, Present penis normal SKIN Skin: Present warm, Present dry; Absent rash MUSCULOSKELETAL Musculoskeletal: Present ROM normal NEUROLOGICAL Neurological: Present alert, Present oriented x 3, Present no gross motor or sensory deficits PSYCHOLOGICAL Psychological: Present mood/affect normal, Present judgement normal Results Laboratory Lab results reviewed: Yes Laboratory comments flu - 100 mg/dl, isaiah - od, blo - large, pro - > 300 mg/dl, uri- 2.0, nit - pos, koko - large; color - brown; Urine cx - pend; CBC - nl WBC, H/H - 10.5/32.5, nl platelets; BMP - BUN = 27, CK = 568; Liver - nl except, Alb - 3.2, AST = 54; Assessment & Plan Medical Decision Making MDM - Pt may have hemorrhagic cystitis vs recurrence of Prostate CA vs severe BPH. - He is to continue all current meds, except the NSAID, and begin the Cefdinir tomorrow. - Take ALL antibiotics, as directed. - Follow-up with Dr. Vickers this week, as scheduled. TAKE ALL OF YOUR MEDICATIONS WITH YOU TO THAT APPOINTMENT. Also, take the results of the blood work and urine test from [facility]'s ER visit with you to that appointment. - Cardenas Catheter Care, as previously discussed and see handout. - STOP taking the medication from [place] for pain, as it is an NSAID, which can cause bleeding, and he is already having blood in his urine. - Return to the Er, if you develop fever, nausea, persistent vomiting or severe pain. Reassessment Reassessment A new cardenas catheter was placed by Renée Andino RN, with return of 300 cc of tea colored urine. There was a small blood clot noted at the tip of the catheter. Assessment & Plan Final Impression: (1) Urinary retention (2) UTI (urinary tract infection) (3) Hematuria (4) Prostate cancer (5) BPH (benign prostatic hyperplasia) Depart Disposition: HOME, SELF-[facility] Meds Active Scripts Cefdinir (OMNICEF) 300 Mg Capsule, 300 MG PO BID for infection for 10 Days, #20 CAP 0 Refills Prov:KATHRIN STRAUSS MD 06/04/20 KATHRIN STRAUSS MD Jun 03, 2020 22:18
--- NOTE | 2020-06-03 22:39 | NUR ---
CATH ON ARRIVAL REMOVED, SMALL DARK SEDIMENT NOTED AT THE END OF CATH. NEW VASQUEZ PLACED AND 400 CC OF DARK TEA COLORED URINE OBTAINED WITH SMALL AMOUNT OF BLOOD CLOTS. PT HAS HX OF PROSTATE CA
--- OUTSIDE RECORDS SUMMARY | 2020-06-03 22:42 | XMS REPORT | Continuity of Care Document ---
Author Author [facility] t Organization [facility] Address [address] [place] [address] Phone Unavailable Care Team Providers Care Cutter Hand Name Role Phone MD Efren SMITH PCP ARACELI CASAS Attphys Unavailable Payers Payer Name Policy Type Policy Number Effective Date Expiration Date Ariane benavidez [facility] [id number] 2019 [facility]00 [facility] Problems Condition Name Condition Details Condition Category Status Onset Date Resolution Date Last Treatment Date Treating Clinician Comments Source [facility] of [facility] Problem [facility] Malignant neoplasm of prostate Problem [facility] Allergies, Adverse Reactions, Alerts Allergy Name Allergy Type Status Severity Reaction(s) Onset Date Inacti ve Date Treating Clinician Comments Source No Known Allergies DA Active U 2018-06-14 00:00:00 [facility] No Known Allergies DA Active U 2018-06-13 00:00:00 [facility] Social History Social Habit Start Date Stop Date Quantity Comments Source Sex Assigned At 1950 00:00:00 1950 00:00:00 [facility] Medications This patient has no known medications. Vital Signs Vital Name Observation Time Observation Value Comments Source Body Temperature 2020-05-19 00:44:00 97.9 [degF] [facility] Weight 2020-05-18 22:36:00 165 [lb_av] [facility] BMI (Body Mass Index) 2020-05-18 22:36:00 24.4 kg/m2 [facility] Procedures Procedure Date / Time Performed Performing Clinician Sabi castro Testicular ultrasound 2019-09-22 00:00:00 [facility] Dup-scan artl dylan abdl/pel/scrot&/RPR orgn lmt 2019-09-22 00:00: 00 [facility] Plan of Care Planned Activity Planned Date Details Comments Source Instructions [facility] Instructions Urinary Retention [facility] Encounters Start Date/Time End Date/Time Encounter Type Admission Type Attendi [facility] Care Department Encounter ID Source 2020-05-18 23:32:00 2020-05-19 00:44:00 Departed Emergency Room [facility] [id number] [facility] [place] 2019-09-22 09:24:00 2019-09-22 09:24:00 Registered Clinic 3 ARACELI CASAS [facility] [id number] [facility] Results Test Description Test Time Test Comments Results Result Comments Source US TESTICULAR 2019-09-22 12:01:00 [facility] [address] [place] [address] Patient Name: OVIDIO MONTEJO MR #: [id number] : 1950 Age/Sex: 69/M Req #: [id number] Adm Physician: Ordered by: ARACELI CASAS MD Report #: [id number] Location: US Room/Bed: Procedure: [id number] US/US TESTICULAR Exam Date: 09/22/19 Exam Time: [...] right and left hydrocele. Signed by: Merced Burrows MD on 09/22/2019 12:03 PM Dictated By: MERCED BURROWS MD 0908 Transcribed By: CLEM on 09/26/19 0908 COPY TO: ARACELI CASAS MD US TESTICULAR DOPPLER LTD 2019-09-22 12:01:00 [place] [address] Patient Name: OVIDIO MONTEJO MR #: [id number] : 1950 Age/Sex: 69/M Req #: [id number] Adm Physician: Ordered by: ARACELI CASAS MD Report #: [id number] Location: Room/Bed: Procedure: [id number] US/US TESTICULAR DOPPLER LTD Exam Date: 09/22/19 [...] right and left hydrocele. Signed by: Merced Burrows MD on 09/22/2019 12:03 PM Dictated By: MERCED BURROWS MD 0908 Transcribed By: CLEM on 09/26/19 0908 COPY TO: ARACELI CASAS MD BIOPSY LYMPH NODE 2018-07-05 11:36:00 [place] [address] Patient Name: OVIDIO MONTEJO MR #: [id number] : 1950 Age/Sex: 68/M Req #: [id number] Adm Physician: Ordered by: ARACELI CASAS MD Report #: [id number] Location: [place] Room/Bed: Procedure: [id number] IR/BIOPSY LYMPH NODE Exam Date: 07/05/18 Exam Time: 0942 REPORT STATUS: Signed Date and Time: 07/05/2018 Procedure: CT-guided fine-needle aspiration and core biopsies of a right external iliac lymph node cell operator: Dr. Petit Pre-operative diagnosis: Prostate cancer, [...] 2 cm throw core biopsy apparatus, with service support representative CT images documenting biopsy needle trough [...] CASAS MD CT GUIDED BIOPSY/ASPIR/INJ/MISTI 2018-07-05 11:36:00 [place] [address] Patient Name: OVIDIO MONTEJO MR #: [id number] : 1950 Age/Sex: 68/M Req #: [id number] Adm Physician: Ordered by: ARACELI CASAS MD Report #: [id number] Location: CT Room/Bed: Procedure: [id number] CT/CT GUIDED BIOPSY/ASPIR/INJ/MISTI Exam Date: 07/05/18 Exam Time: 941 REPORT STATUS: Signed Date and Time: 07/05/2018 Procedure: CT-guided fine-needle aspiration and core biopsies of a right external iliac lymph node cell operator: Dr. Petit Pre-operative diagnosis: Prostate cancer, [...] 2 cm throw core biopsy apparatus, with service support representative CT images documenting biopsy needle trough [...] MD FNA WITH IMAGE GUIDANCE 2018-07-05 11:36:00 [place] [address] Patient Name: OVIDIO MONTEJO MR #: [id number] : 1950 Age/Sex: 68/M Req #: [id number] [facility] Physician: Ordered by: ARACELI CASAS MD Report #: [id number] Location: [place] Room/Bed: Procedure: [id number] IR/FNA WITH IMAGE GUIDANCE Exam Date: 07/05/18 Exam Time: 941 REPORT STATUS: Signed Date and Time: 07/05/2018 Procedure: CT-guided fine- needle aspiration and core biopsies of a right external iliac lymph node cell operator: Dr. Petit Pre-operative diagnosis: Prostate cancer, [...] 2 cm throw core biopsy apparatus, with service support representative CT images documenting biopsy needle trough [...] CASAS MD CT PELVIS W 2018-06-24 15:52:00 [place] [address] Patient Name: OVIDIO MONTEJO MR #: [id number] : 1950 Age/Sex: 68/M Req #: [id number] Adm Physician: Ordered by: ARACELI CASAS MD Report #: [id number] Location: CT Room/Bed: Procedure: [id number] CT/CT PELVIS W Exam Date: 06/24/18 Exam [...] CASAS MD MRI PELVIS WOW 2018-06-16 08:52:00 [place] [address] Patient Name: OVIDIO MONTEJO MR #: [id number] : 1950 Age/Sex: 68/M Req #: [id number] Adm Physician: Ordered by: ARACELI CASAS MD Report #: [id number] Location: [place] Room/Bed: Procedure: [id number] MRI/MRI PELVIS WOW Exam Date: Exam Time: REPORT STATUS: Signed EXAM: MRI Pelvis WITHOUT and WITH Contrast INDICATION: S ELEVATED PSA COMPARISON: None. TECHNIQUE: Multiplanar and multisequence imaging was performed of the pelvis from below the inferior poles of the kidneys to the lesser trochanters without and with contrast. T1-weighted, T2-weighted images, T1-weighted in and [id number]. Dynamic, post gadolinium T1-weighted spoiled gradient echo [...] Left internal iliac lymphadenopathy. Signed by: Dr. Ray Ponce M.D. on 06/16/2018 9:07 AM Dictated By: RAY PONCE MD 6 Transcribed By: CLEM on 06/16/18906 COPY TO: ARACELI CASAS MD BONE and/or JOINT WHOLE BODY 2018-06-15 21:08:00 [place] [address] Patient Name: OVIDIO MONTEJO MR #: [id number] : 1950 Age/Sex: 68/M Req #: [id number] Adm Physician: Ordered by: ARACELI CASAS MD Report #: [id number] Location: [place] Room/Bed: Procedure: [id number] NM/BONE and/or JOINT WHOLE BODY Exam Date: [...]
[2020-06-03] MEDS ORDERED: CEFTRIAXONE SOD 1 GM/NS 50 ML 50 ML IV ONE ×2 (22:45→22:59)
[2020-06-03] MEDS ORDERED: SODIUM CHLORIDE 0.9% 500ML 500 ML IV STA ×2 (22:55→23:55)
[2020-06-03] MEDS ORDERED: SODIUM CHLORIDE 0.9% 500ML 500 ML ONE (23:17)
[2020-06-03 23:26] LABS: BASOPHILS % 0.3 % (0.0-1.0); EOSINOPHILS # (AUTO) 0.2 (0.0-0.4); EOSINOPHILS % 3.5 % (0.0-6.0); HEMATOCRIT 32.5 % (38.2-49.6); HEMOGLOBIN 10.5 g/dL (14.0-18.0); LYMPHOCYTES # (AUTO) 1.1 (1.0-3.2); LYMPHOCYTES % 16.6 % (18.0-39.1); MEAN CORPUSCULAR HEMOGLOBIN 30.6 pg (28-32); MEAN CORPUSCULAR HGB CONC 32.3 g/dL (31-35); MEAN CORPUSCULAR VOLUME 94.8 fL (81-99); MONOCYTES # (AUTO) 0.6 (0.2-0.8); MONOCYTES % 8.7 % (4.4-11.3); NEUTROPHILS # (AUTO) 4.9 (2.1-6.9); NEUTROPHILS % 70.6 % (38.7-80.0); PLATELET COUNT 273 x10e3/uL (140-360); RED BLOOD COUNT 3.43 x10e6/uL (4.3-5.7); RED CELL DISTRIBUTION WIDTH 12.3 % (11.7-14.4)
--- NOTE | 2020-06-03 23:35 | NUR ---
REC'D REPORT FROM OFF GOING NS. AWAITING CBC RESULTS FROM [facility]
[2020-06-03 23:58] VITALS: BP 147/61
[2020-06-04] MEDS ORDERED: CEFDINIR300 MG PO (00:08)
== END 2020-06-04 00:25 | disposition home or self-care (01) ==
LOC: FSED 22:20
DX: R33.9 Retention of urine, unspecified (principal); C61 Malignant neoplasm of prostate; N39.0 Urinary tract infection, site not specified; R31.9 Hematuria, unspecified; N40.1 Benign prostatic hyperplasia with lower urinary tract symptoms; F17.210 Nicotine dependence, cigarettes, uncomplicated
CPT/HCPCS: 36415; 80048; 80076; 81003; 85025; 87086; 99283; J0696; J7040; 51700

== ENCOUNTER 2020-09-02 13:24 | Inpatient (IN) | payer MEDICARE ==
[~2020-09-02] VITALS: Ht 167.6 cm; Wt 74.2 kg
[2020-09-02] VITALS (7 sets, daily range): BP systolic 142–163; BP diastolic 66–84
[~2020-09-02 13:24] MED LIST changes: +CEFDINIR300 MG PO; -FENTANYL CITRATE/PF 100MCG/2 ML INJ ONE; -GELATIN SPONGE 12-7MM ONE; -LIDOCAINE HCL 1% LOCAL INJ 20 ML VIAL ONE; -MIDAZOLAM HCL 2 MG/2 ML VIAL ONE; -SODIUM CHLORIDE 0.9% 500ML 500 ML ONE
[2020-09-02] MEDS ORDERED: SODIUM CHLORIDE 0.9% 1000ML 1,000 ML IV STA (13:35)
[2020-09-02] MEDS ORDERED: DICYCLOMINE HCL20 MG PO (13:40)
[2020-09-02] MEDS ORDERED: XTANDI40 MG (13:40)
[2020-09-02] MEDS ORDERED: AZO1 EACH (13:40)
[2020-09-02] MEDS ORDERED: BICALUTAMIDE50 MG PO (13:40)
[2020-09-02] MEDS ORDERED: ULTRAM50 MG PO (13:40)
[2020-09-02] MEDS ORDERED: FLOMAX0.4 MG PO (13:40)
[2020-09-02] MEDS ORDERED: ONDANSETRON HCL INJ 2MG/ML 2ML 2 MG/ML VIAL IV NR (13:45)
[2020-09-02] MEDS ORDERED: ONDANSETRON HCL INJ 2MG/ML 2ML 2 MG/ML VIAL ONE (14:01)
[2020-09-02] MEDS ORDERED: SODIUM CHLORIDE 0.9% 1000ML 1,000 ML ONE ×2 (14:01→17:05)
[2020-09-02] MEDS ORDERED: MORPHINE SULFATE INJ 2 MG/ML SYR IV STA (14:23)
[2020-09-02] MEDS ORDERED: ONDANSETRON HCL INJ 2MG/ML 2ML 2 MG/ML VIAL IV STA (14:23)
[2020-09-02] MEDS ORDERED: CEFTRIAXONE SOD 1 GM VIAL IM ONE (14:30)
[2020-09-02] MEDS ORDERED: CEFTRIAXONE SOD 1 GM/NS 50 ML 50 ML IV ONE (14:45)
[2020-09-02] MEDS ORDERED: MORPHINE SULFATE INJ 4 MG/ML INJ 1ML ONE (14:45)
[2020-09-02] MEDS: SODIUM CHLORIDE 0.9% 1000ML 1,000 ML IV SCH (15:46)
[2020-09-02] MEDS: CEFTRIAXONE SOD 1 GM/NS 50 ML 50 ML IV SCH (15:46)
[2020-09-02] MEDS ORDERED: METOPROLOL TARTRATE INJ 1 MG/ML VIAL IV PRN (16:30)
[2020-09-02] MEDS ORDERED: POLYETHYLENE GLYCOL 3350 17 GM PACK PO PRN (16:30)
[2020-09-02] MEDS ORDERED: ACETAMINOPHEN 325 MG TAB PO PRN (16:30)
[2020-09-02] MEDS: FAMOTIDINE 20 MG/2 ML VIAL IV SCH (17:00)
[2020-09-02] MEDS ORDERED: DOCUSATE SODIUM 100 MG CAP PO SCH (17:00)
[2020-09-02] MEDS ORDERED: MORPHINE SULFATE INJ 4 MG/ML INJ 1ML IV STA (19:44)
[2020-09-02] MEDS ORDERED: PRAVACHOL20 MG PO (19:46)
[2020-09-02] MEDS: ONDANSETRON HCL INJ 2MG/ML 2ML 2 MG/ML VIAL IV PRN (20:00)
[2020-09-02] MEDS ORDERED: LACTULOSE SYRUP 20 GM/30 ML UDC PO PRN (21:00)
[2020-09-02] MEDS ORDERED: BISACODYL 10 MG SUPP PR ONE (21:00)
[2020-09-02] MEDS ORDERED: TRAMADOL HCL 50 MG TAB PO PRN (21:30)
[2020-09-03] VITALS (8 sets, daily range): BP systolic 122–162; BP diastolic 76–86
[2020-09-03] MEDS: MORPHINE SULFATE INJ 2 MG/ML SYR IV PRN ×4 (00:15→23:25)
[2020-09-03] MEDS: SODIUM CHLORIDE 0.9% 1000ML 1,000 ML IV SCH ×3 (00:35→22:00)
[2020-09-03] MEDS: ONDANSETRON HCL INJ 2MG/ML 2ML 2 MG/ML VIAL IV PRN ×2 (05:00→23:25)
[2020-09-03 06:06] LABS: CHOL/HDL RATIO 3.1 (3.9-4.7); MAGNESIUM 2.2 MG/DL (1.3-2.1); PHOSPHORUS 6.7 MG/DL (2.3-4.7)
[2020-09-03 06:43] LABS: BASOPHILS % 0.2 % (0.0-1.0); EOSINOPHILS % 0.1 % (0.0-6.0); HEMATOCRIT 24.7 % (38.2-49.6); HEMOGLOBIN 8.2 g/dL (14.0-18.0); LYMPHOCYTES # (AUTO) 0.5 (1.0-3.2); LYMPHOCYTES % 4.4 % (18.0-39.1); MEAN CORPUSCULAR HGB CONC 33.2 g/dL (31-35); MEAN CORPUSCULAR VOLUME 90.5 fL (81-99); MONOCYTES # (AUTO) 0.9 (0.2-0.8); MONOCYTES % 8.3 % (4.4-11.3); NEUTROPHILS # (AUTO) 9.4 (2.1-6.9); NEUTROPHILS % 86.5 % (38.7-80.0); PLATELET COUNT 237 x10e3/uL (140-360); RED BLOOD COUNT 2.73 x10e6/uL (4.3-5.7); RED CELL DISTRIBUTION WIDTH 12.4 % (11.7-14.4)
[2020-09-03 06:46] LABS: THYROID STIMULATING HORMONE 1.193 uIU/mL (0.350-4.940)
[2020-09-03 06:49] LABS: ALBUMIN 2.6 g/dL (3.5-5.0); ALBUMIN/GLOBULIN RATIO 0.7 (0.8-2.0); ANION GAP 21.1 mmol/L (8-16); CALCIUM 8.3 mg/dL (8.4-10.2); CREATININE, SERUM 9.06 mg/dL (0.72-1.25)
[2020-09-03 07:46] LABS: POTASSIUM 6.1 mmol/L (3.5-5.1)
[2020-09-03] MEDS ORDERED: POLYETHYLENE GLYCOL 3350 17 GM PACK PO SCH (09:00)
[2020-09-03 09:25] LABS: INR 1.29; PROTHROMBIN TIME 16.7 seconds (11.9-14.5)
[2020-09-03] MEDS ORDERED: SOD POLYSTYRENE SULFONATE SUSP 15 GM/60 ML BTL PR ONE (09:30)
[2020-09-03] MEDS: TAMSULOSIN HCL 0.4 MG CAP PO SCH ×2 (09:53→18:46)
[2020-09-03] MEDS: BICALUTAMIDE 50 MG TABLET PO SCH (09:53)
[2020-09-03] MEDS: FAMOTIDINE 20 MG/2 ML VIAL IV SCH ×2 (09:54→18:46)
[2020-09-03] MEDS ORDERED: HEPARIN SOD (PORCINE) 1000 UNIT/ML SDV ONE (12:56)
[2020-09-03 13:41] LABS: ANION GAP 22.6 mmol/L (8-16); CALCIUM 8.5 mg/dL (8.4-10.2); CREATININE, SERUM 9.8 mg/dL (0.72-1.25)
[2020-09-03 13:45] LABS: POTASSIUM 6.6 mmol/L (3.5-5.1)
[2020-09-03] MEDS ORDERED: SODIUM CHLORIDE 0.9% 1000ML 1,000 ML ONE (15:00)
[2020-09-03] MEDS: CEFTRIAXONE SOD 1 GM/NS 50 ML 50 ML IV SCH (15:08)
[2020-09-03] MEDS ORDERED: MANNITOL 25% 12.5GM/50 ML VIAL IV PRN (17:30)
[2020-09-03] MEDS ORDERED: HEPARIN SOD (PORCINE) 1000 UNIT/ML SDV IV PRN (17:30)
[2020-09-03] MEDS ORDERED: SODIUM CHLORIDE 0.9% 1000ML 2,000 ML IV PRN (17:30)
[2020-09-03] MEDS ORDERED: PRAVASTATIN 20 MG TAB PO SCH (21:00)
[2020-09-04] VITALS (20 sets, daily range): BP systolic 85–161; BP diastolic 56–102
[2020-09-04] MEDS ORDERED: DILTIAZEM HCL 5 MG/ML 5 ML VIAL IV STA (05:32)
[2020-09-04 06:07] LABS: BASOPHILS % 0.2 % (0.0-1.0); EOSINOPHILS % 0.1 % (0.0-6.0); HEMATOCRIT 25.8 % (38.2-49.6); HEMOGLOBIN 8.6 g/dL (14.0-18.0); LYMPHOCYTES # (AUTO) 0.4 (1.0-3.2); LYMPHOCYTES % 3.7 % (18.0-39.1); MEAN CORPUSCULAR HEMOGLOBIN 30.2 pg (28-32); MEAN CORPUSCULAR HGB CONC 33.3 g/dL (31-35); MEAN CORPUSCULAR VOLUME 90.5 fL (81-99); MONOCYTES # (AUTO) 0.8 (0.2-0.8); MONOCYTES % 7.6 % (4.4-11.3); NEUTROPHILS # (AUTO) 9.7 (2.1-6.9); NEUTROPHILS % 87.9 % (38.7-80.0); PLATELET COUNT 205 x10e3/uL (140-360); RED BLOOD COUNT 2.85 x10e6/uL (4.3-5.7); RED CELL DISTRIBUTION WIDTH 12.4 % (11.7-14.4)
[2020-09-04] MEDS ORDERED: AMIODARONE HCL 150 MG/100 ML BAG IV ONE (06:15)
[2020-09-04 06:26] LABS: ANION GAP 25.7 mmol/L (8-16); CALCIUM 8.8 mg/dL (8.4-10.2); CREATININE, SERUM 8.83 mg/dL (0.72-1.25); POTASSIUM 5.7 mmol/L (3.5-5.1)
[2020-09-04] MEDS ORDERED: AMIODARONE 900MG 500 ML IV ONE (06:30)
[2020-09-04] MEDS ORDERED: FUROSEMIDE INJ 10 MG/ML 4 ML VIAL IV ONE (06:45)
[2020-09-04] MEDS: FAMOTIDINE 20 MG/2 ML VIAL IV SCH ×2 (07:48→16:05)
[2020-09-04] MEDS: TAMSULOSIN HCL 0.4 MG CAP PO SCH ×2 (07:48→16:05)
[2020-09-04] MEDS ORDERED: METOPROLOL TARTRATE INJ 1 MG/ML VIAL IV PRN (08:30)
[2020-09-04] MEDS ORDERED: METOPROLOL TARTRATE INJ 1 MG/ML VIAL IV NR (08:30)
[2020-09-04] MEDS: BICALUTAMIDE 50 MG TABLET PO SCH (08:53)
[2020-09-04] MEDS: MORPHINE SULFATE INJ 2 MG/ML SYR IV PRN (09:51)
[2020-09-04] MEDS ORDERED: LIDOCAINE HCL 1% LOCAL INJ 20 ML VIAL ONE (12:04)
[2020-09-04] MEDS ORDERED: SODIUM CHLORIDE 0.9% 250ML 250 ML ONE (12:05)
[2020-09-04] MEDS ORDERED: IOPAMIDOL 300MG/ML 100 ML INFUS..BTL IV ONE (12:05)
[2020-09-04] MEDS ORDERED: MIDAZOLAM HCL 2 MG/2 ML VIAL ONE (12:08)
[2020-09-04] MEDS ORDERED: FENTANYL CITRATE/PF 100MCG/2 ML INJ ONE (12:08)
[2020-09-04] MEDS: METOPROLOL TARTRATE 25 MG TAB PO SCH ×2 (12:30→17:40)
[2020-09-04] MEDS ORDERED: CEFAZOLIN SOD 1 GM/NS 50ML 0 ML IV ONE (12:38)
[2020-09-04] MEDS: IPRATROPIUM BROMIDE 0.02% 2.5 ML NEB NEB SCH ×2 (13:00→19:45)
[2020-09-04] MEDS: CEFTRIAXONE SOD 1 GM/NS 50 ML 50 ML IV SCH (15:39)
[2020-09-05] VITALS (22 sets, daily range): BP systolic 94–138; BP diastolic 52–105
[2020-09-05] MEDS: METOPROLOL TARTRATE 25 MG TAB PO SCH ×4 (00:05→18:03)
[2020-09-05] MEDS: IPRATROPIUM BROMIDE 0.02% 2.5 ML NEB NEB SCH ×4 (01:15→23:55)
[2020-09-05 04:40] LABS: BASOPHILS % 0.4 % (0.0-1.0); EOSINOPHILS # (AUTO) 0.1 (0.0-0.4); EOSINOPHILS % 0.9 % (0.0-6.0); HEMATOCRIT 23.3 % (38.2-49.6); HEMOGLOBIN 7.8 g/dL (14.0-18.0); LYMPHOCYTES # (AUTO) 0.4 (1.0-3.2); LYMPHOCYTES % 5.3 % (18.0-39.1); MEAN CORPUSCULAR HEMOGLOBIN 29.9 pg (28-32); MEAN CORPUSCULAR HGB CONC 33.5 g/dL (31-35); MEAN CORPUSCULAR VOLUME 89.3 fL (81-99); MONOCYTES # (AUTO) 0.7 (0.2-0.8); MONOCYTES % 8.9 % (4.4-11.3); NEUTROPHILS # (AUTO) 6.8 (2.1-6.9); NEUTROPHILS % 83.9 % (38.7-80.0); PLATELET COUNT 226 x10e3/uL (140-360); RED BLOOD COUNT 2.61 x10e6/uL (4.3-5.7); RED CELL DISTRIBUTION WIDTH 12.1 % (11.7-14.4)
[2020-09-05 05:02] LABS: ANION GAP 15.1 mmol/L (8-16); CALCIUM 8.2 mg/dL (8.4-10.2); CREATININE, SERUM 2.66 mg/dL (0.72-1.25); POTASSIUM 3.1 mmol/L (3.5-5.1)
[2020-09-05] MEDS: TAMSULOSIN HCL 0.4 MG CAP PO SCH ×2 (08:57→16:14)
[2020-09-05] MEDS: BICALUTAMIDE 50 MG TABLET PO SCH (08:57)
[2020-09-05] MEDS: FAMOTIDINE 20 MG/2 ML VIAL IV SCH ×2 (08:57→16:14)
[2020-09-05] MEDS: CEFTRIAXONE SOD 1 GM/NS 50 ML 50 ML IV SCH (15:42)
[2020-09-05] MEDS: AMIODARONE HCL 200 MG TAB PO SCH (16:14)
[2020-09-05] MEDS ORDERED: POTASSIUM CHLORIDE 20 MEQ TAB CR PO ONE (17:45)
[2020-09-05] MEDS ORDERED: MAGNESIUM SULFATE 2GM/50ML 50 ML IV ONE (18:00)
[2020-09-05] MEDS: ONDANSETRON HCL INJ 2MG/ML 2ML 2 MG/ML VIAL IV PRN (21:23)
[2020-09-05] MEDS: TEMAZEPAM 7.5 MG CAP PO PRN (21:41)
[2020-09-06] VITALS (8 sets, daily range): BP systolic 102–121; BP diastolic 61–79
[2020-09-06] MEDS: ONDANSETRON HCL INJ 2MG/ML 2ML 2 MG/ML VIAL IV PRN (04:26)
[2020-09-06 05:14] LABS: BASOPHILS % 0.1 % (0.0-1.0); EOSINOPHILS # (AUTO) 0.1 (0.0-0.4); EOSINOPHILS % 0.7 % (0.0-6.0); HEMATOCRIT 22.8 % (38.2-49.6); HEMOGLOBIN 7.5 g/dL (14.0-18.0); LYMPHOCYTES # (AUTO) 0.5 (1.0-3.2); LYMPHOCYTES % 5.9 % (18.0-39.1); MEAN CORPUSCULAR HEMOGLOBIN 30.1 pg (28-32); MEAN CORPUSCULAR HGB CONC 32.9 g/dL (31-35); MEAN CORPUSCULAR VOLUME 91.6 fL (81-99); MONOCYTES # (AUTO) 0.7 (0.2-0.8); MONOCYTES % 7.5 % (4.4-11.3); NEUTROPHILS # (AUTO) 7.4 (2.1-6.9); NEUTROPHILS % 85.3 % (38.7-80.0); PLATELET COUNT 242 x10e3/uL (140-360); RED BLOOD COUNT 2.49 x10e6/uL (4.3-5.7); RED CELL DISTRIBUTION WIDTH 12.4 % (11.7-14.4)
[2020-09-06] MEDS: METOPROLOL TARTRATE 25 MG TAB PO SCH ×4 (05:25→16:03)
[2020-09-06 05:32] LABS: ANION GAP 13.1 mmol/L (8-16); BLOOD UREA NITROGEN 19 mg/dL (7-26); BUN/CREATININE RATIO 19 (6-25); CALCIUM 7.9 mg/dL (8.4-10.2); CARBON DIOXIDE 29 mmol/L (22-29); CHLORIDE 102 mmol/L (98-107); CREATININE, SERUM 0.99 mg/dL (0.72-1.25); EST GLOMERULAR FILTRATION RATE > 60 ML/MIN (60-); GLUCOSE 125 mg/dL (74-118); MAGNESIUM 1.9 MG/DL (1.3-2.1); POTASSIUM 3.1 mmol/L (3.5-5.1); SODIUM 141 mmol/L (136-145)
[2020-09-06 06:05] LABS: FERRITIN 1774.75 ng/mL (21.81-274.66)
[2020-09-06] MEDS: IPRATROPIUM BROMIDE 0.02% 2.5 ML NEB NEB SCH ×3 (07:39→19:00)
[2020-09-06] MEDS: BICALUTAMIDE 50 MG TABLET PO SCH (08:45)
[2020-09-06] MEDS: TAMSULOSIN HCL 0.4 MG CAP PO SCH ×2 (08:45→16:01)
[2020-09-06] MEDS: AMIODARONE HCL 200 MG TAB PO SCH ×2 (08:45→16:01)
[2020-09-06] MEDS: FAMOTIDINE 20 MG/2 ML VIAL IV SCH ×2 (08:45→16:01)
[2020-09-06] MEDS ORDERED: POTASSIUM CHLORIDE 10MEQ EA PO ONE (09:00)
[2020-09-06] MEDS ORDERED: POTASSIUM PHOSPHATE 20 MM in SODIUM CHLORIDE 0.9% 250ML 250 ML IV ONE (09:00)
[2020-09-06] MEDS ORDERED: MAGNESIUM SULFATE 2GM/50ML IV ONE (09:00)
[2020-09-06] MEDS ORDERED: MAGNESIUM SULFATE 2GM/50ML 50 ML IV ONE (09:30)
[2020-09-06] MEDS: CEFTRIAXONE SOD 1 GM/NS 50 ML 50 ML IV SCH (16:01)
[2020-09-06] MEDS: IRON SUCROSE 100 MG in SODIUM CHLORIDE 0.9% 100 ML 100 ML IV SCH (16:01)
[2020-09-06] MEDS: CYANOCOBALAMIN 1,000 MCG TAB PO SCH (16:03)
[2020-09-07] VITALS (8 sets, daily range): BP systolic 114–145; BP diastolic 52–85
[2020-09-07] MEDS: TEMAZEPAM 7.5 MG CAP PO PRN (00:56)
[2020-09-07] MEDS: IPRATROPIUM BROMIDE 0.02% 2.5 ML NEB NEB SCH ×4 (03:45→19:40)
[2020-09-07 05:14] LABS: BASOPHILS % 0.3 % (0.0-1.0); EOSINOPHILS # (AUTO) 0.2 (0.0-0.4); EOSINOPHILS % 2.3 % (0.0-6.0); HEMATOCRIT 22.7 % (38.2-49.6); HEMOGLOBIN 7.3 g/dL (14.0-18.0); LYMPHOCYTES # (AUTO) 0.7 (1.0-3.2); LYMPHOCYTES % 6.7 % (18.0-39.1); MEAN CORPUSCULAR HGB CONC 32.2 g/dL (31-35); MEAN CORPUSCULAR VOLUME 93.4 fL (81-99); MONOCYTES # (AUTO) 0.8 (0.2-0.8); MONOCYTES % 8.4 % (4.4-11.3); NEUTROPHILS % 81.7 % (38.7-80.0); PLATELET COUNT 229 x10e3/uL (140-360); RED BLOOD COUNT 2.43 x10e6/uL (4.3-5.7); RED CELL DISTRIBUTION WIDTH 12.5 % (11.7-14.4)
[2020-09-07] MEDS: METOPROLOL TARTRATE 25 MG TAB PO SCH ×4 (05:36→17:27)
[2020-09-07 05:49] LABS: ANION GAP 10.1 mmol/L (8-16); BLOOD UREA NITROGEN 14 mg/dL (7-26); BUN/CREATININE RATIO 16 (6-25); CALCIUM 7.6 mg/dL (8.4-10.2); CARBON DIOXIDE 25 mmol/L (22-29); CHLORIDE 93 mmol/L (98-107); CREATININE, SERUM 0.85 mg/dL (0.72-1.25); EST GLOMERULAR FILTRATION RATE > 60 ML/MIN (60-); GLUCOSE 111 mg/dL (74-118); POTASSIUM 3.1 mmol/L (3.5-5.1)
[2020-09-07 06:19] LABS: SODIUM 125 mmol/L (136-145)
[2020-09-07] MEDS ORDERED: TRAMADOL HCL 50 MG TAB PO PRN (08:15)
[2020-09-07] MEDS ORDERED: TEMAZEPAM 15 MG CAP PO PRN (08:15)
[2020-09-07] MEDS: AMIODARONE HCL 200 MG TAB PO SCH ×2 (08:45→17:27)
[2020-09-07] MEDS: BICALUTAMIDE 50 MG TABLET PO SCH (08:45)
[2020-09-07] MEDS: TAMSULOSIN HCL 0.4 MG CAP PO SCH ×2 (08:46→17:28)
[2020-09-07] MEDS: CYANOCOBALAMIN 1,000 MCG TAB PO SCH (08:46)
[2020-09-07] MEDS ORDERED: ACETAMINOPHEN 325 MG TAB PO STA (10:05)
[2020-09-07] MEDS ORDERED: POTASSIUM CHLORIDE 10MEQ EA PO ONE (10:10)
[2020-09-07] MEDS ORDERED: SODIUM CHLORIDE 0.9% 250ML 250 ML IV SCH (10:15)
[2020-09-07] MEDS ORDERED: POTASSIUM PHOSPHATE 15 MM in SODIUM CHLORIDE 0.9% 250ML 250 ML IV ONE (10:30)
[2020-09-07] MEDS ORDERED: MORPHINE SULFATE INJ 2 MG/ML SYR IV PRN (10:45)
[2020-09-07] MEDS: ONDANSETRON HCL INJ 2MG/ML 2ML 2 MG/ML VIAL IV PRN (14:03)
[2020-09-07 14:58] LABS: BODY FLUID APPEARANCE CLOUDY; BODY FLUID COLOR YELLOW; BODY FLUID TYPE PLEURAL; RBC,BODY FLUID 31 cells/uL; WBC,BODY FLUID 135 cells/uL
[2020-09-07] MEDS: FAMOTIDINE 20 MG TAB PO SCH (17:29)
[2020-09-07 18:20] LABS: LYMPHOCYTES,BODY FLUID 12 %; MONO/MACROPHG,BODY FLUID 50 %; NEUTROPHILS,BODY FLUID 31 %
[2020-09-07 18:21] LABS: OTHER CELLS,BODY FLUID 7 %
[2020-09-07] MEDS ORDERED: POLYETHYLENE GLYCOL 3350 17 GM PACK PO ONE ×2 (19:30→23:00)
[2020-09-07] MEDS: CEFTRIAXONE SOD 1 GM/NS 50 ML 50 ML IV SCH (19:47)
[2020-09-07] MEDS ORDERED: SODIUM CHLORIDE 0.9% 250ML 250 ML ONE (19:50)
[2020-09-07] MEDS: IRON SUCROSE 100 MG in SODIUM CHLORIDE 0.9% 100 ML 100 ML IV SCH (20:38)
[2020-09-08] VITALS (8 sets, daily range): BP systolic 126–137; BP diastolic 58–80
[2020-09-08] MEDS: METOPROLOL TARTRATE 25 MG TAB PO SCH ×4 (00:45→16:50)
[2020-09-08] MEDS: IPRATROPIUM BROMIDE 0.02% 2.5 ML NEB NEB SCH ×4 (01:02→18:30)
[2020-09-08 08:15] LABS: BASOPHILS % 0.2 % (0.0-1.0); EOSINOPHILS # (AUTO) 0.1 (0.0-0.4); EOSINOPHILS % 0.9 % (0.0-6.0); HEMATOCRIT 29.6 % (38.2-49.6); HEMOGLOBIN 9.6 g/dL (14.0-18.0); LYMPHOCYTES # (AUTO) 0.7 (1.0-3.2); LYMPHOCYTES % 6.1 % (18.0-39.1); MEAN CORPUSCULAR HEMOGLOBIN 30.7 pg (28-32); MEAN CORPUSCULAR HGB CONC 32.4 g/dL (31-35); MEAN CORPUSCULAR VOLUME 94.6 fL (81-99); MONOCYTES # (AUTO) 0.8 (0.2-0.8); NEUTROPHILS # (AUTO) 9.8 (2.1-6.9); PLATELET COUNT 253 x10e3/uL (140-360); RED BLOOD COUNT 3.13 x10e6/uL (4.3-5.7); RED CELL DISTRIBUTION WIDTH 12.6 % (11.7-14.4)
[2020-09-08] MEDS: AMIODARONE HCL 200 MG TAB PO SCH ×2 (08:22→16:50)
[2020-09-08] MEDS: TAMSULOSIN HCL 0.4 MG CAP PO SCH ×2 (08:22→16:49)
[2020-09-08] MEDS: BICALUTAMIDE 50 MG TABLET PO SCH (08:22)
[2020-09-08] MEDS: CYANOCOBALAMIN 1,000 MCG TAB PO SCH (08:22)
[2020-09-08] MEDS: FAMOTIDINE 20 MG TAB PO SCH ×2 (08:22→16:50)
[2020-09-08 08:40] LABS: MAGNESIUM 1.6 MG/DL (1.3-2.1); PHOSPHORUS 2.3 MG/DL (2.3-4.7)
[2020-09-08 08:49] LABS: ANION GAP 13.9 mmol/L (8-16); BLOOD UREA NITROGEN 13 mg/dL (7-26); BUN/CREATININE RATIO 17 (6-25); CARBON DIOXIDE 22 mmol/L (22-29); CHLORIDE 105 mmol/L (98-107); CREATININE, SERUM 0.75 mg/dL (0.72-1.25); EST GLOMERULAR FILTRATION RATE > 60 ML/MIN (60-); GLUCOSE 106 mg/dL (74-118); POTASSIUM 3.9 mmol/L (3.5-5.1); SODIUM 137 mmol/L (136-145)
[2020-09-08] MEDS ORDERED: LACTULOSE SYRUP 20 GM/30 ML UDC PO PRN (10:45)
[2020-09-08] MEDS ORDERED: CITRATE OF MAGNESIA 300ML BOTTLE PO ONE (11:30)
[2020-09-08] MEDS ORDERED: SOD PHOSPHATE/SOD BIPHOSPHATE ENEMA 132 ML BTL PR ONE (11:30)
[2020-09-08] MEDS: IRON SUCROSE 100 MG in SODIUM CHLORIDE 0.9% 100 ML 100 ML IV SCH (13:04)
[2020-09-08] MEDS: CEFTRIAXONE SOD 1 GM/NS 50 ML 50 ML IV SCH (14:41)
[2020-09-08] MEDS: DOCUSATE SODIUM 100 MG CAP PO SCH (16:51)
[2020-09-09] VITALS (7 sets, daily range): BP systolic 109–122; BP diastolic 59–73
[2020-09-09] MEDS: METOPROLOL TARTRATE 25 MG TAB PO SCH ×4 (00:07→16:09)
[2020-09-09 06:36] LABS: BASOPHILS % 0.3 % (0.0-1.0); EOSINOPHILS # (AUTO) 0.2 (0.0-0.4); EOSINOPHILS % 1.5 % (0.0-6.0); HEMATOCRIT 26.4 % (38.2-49.6); HEMOGLOBIN 8.6 g/dL (14.0-18.0); LYMPHOCYTES # (AUTO) 0.8 (1.0-3.2); LYMPHOCYTES % 6.8 % (18.0-39.1); MEAN CORPUSCULAR HEMOGLOBIN 30.8 pg (28-32); MEAN CORPUSCULAR HGB CONC 32.6 g/dL (31-35); MEAN CORPUSCULAR VOLUME 94.6 fL (81-99); MONOCYTES # (AUTO) 0.9 (0.2-0.8); MONOCYTES % 8.3 % (4.4-11.3); NEUTROPHILS # (AUTO) 9.1 (2.1-6.9); NEUTROPHILS % 81.9 % (38.7-80.0); PLATELET COUNT 229 x10e3/uL (140-360); RED BLOOD COUNT 2.79 x10e6/uL (4.3-5.7); RED CELL DISTRIBUTION WIDTH 12.7 % (11.7-14.4)
[2020-09-09] MEDS: IPRATROPIUM BROMIDE 0.02% 2.5 ML NEB NEB SCH ×4 (06:50→19:55)
[2020-09-09 06:57] LABS: ANION GAP 11.9 mmol/L (8-16); BLOOD UREA NITROGEN 13 mg/dL (7-26); BUN/CREATININE RATIO 16 (6-25); CALCIUM 8.1 mg/dL (8.4-10.2); CARBON DIOXIDE 25 mmol/L (22-29); CHLORIDE 104 mmol/L (98-107); CREATININE, SERUM 0.79 mg/dL (0.72-1.25); EST GLOMERULAR FILTRATION RATE > 60 ML/MIN (60-); GLUCOSE 106 mg/dL (74-118); POTASSIUM 3.9 mmol/L (3.5-5.1); SODIUM 137 mmol/L (136-145)
[2020-09-09] MEDS: FAMOTIDINE 20 MG TAB PO SCH ×2 (08:00→15:52)
[2020-09-09] MEDS: BICALUTAMIDE 50 MG TABLET PO SCH (08:00)
[2020-09-09] MEDS: DOCUSATE SODIUM 100 MG CAP PO SCH ×2 (08:00→15:52)
[2020-09-09] MEDS: CYANOCOBALAMIN 1,000 MCG TAB PO SCH (08:01)
[2020-09-09] MEDS: TAMSULOSIN HCL 0.4 MG CAP PO SCH ×2 (08:01→15:53)
[2020-09-09] MEDS: AMIODARONE HCL 200 MG TAB PO SCH ×2 (08:01→15:53)
[2020-09-09] MEDS: IRON SUCROSE 100 MG in SODIUM CHLORIDE 0.9% 100 ML 100 ML IV SCH (12:53)
[2020-09-09] MEDS: CEFTRIAXONE SOD 1 GM/NS 50 ML 50 ML IV SCH (15:53)
[2020-09-10] VITALS: BP 120/60
[2020-09-10] MEDS: METOPROLOL TARTRATE 25 MG TAB PO SCH ×2 (00:28→05:30)
[2020-09-10] MEDS: IPRATROPIUM BROMIDE 0.02% 2.5 ML NEB NEB SCH ×3 (00:46→14:50)
[2020-09-10 04:00] VITALS: BP 124/60
[2020-09-10 06:23] LABS: BASOPHILS % 0.3 % (0.0-1.0); EOSINOPHILS # (AUTO) 0.2 (0.0-0.4); EOSINOPHILS % 1.9 % (0.0-6.0); HEMATOCRIT 26.4 % (38.2-49.6); HEMOGLOBIN 8.5 g/dL (14.0-18.0); LYMPHOCYTES # (AUTO) 0.8 (1.0-3.2); MEAN CORPUSCULAR HEMOGLOBIN 30.7 pg (28-32); MEAN CORPUSCULAR HGB CONC 32.2 g/dL (31-35); MEAN CORPUSCULAR VOLUME 95.3 fL (81-99); MONOCYTES # (AUTO) 0.9 (0.2-0.8); MONOCYTES % 9.2 % (4.4-11.3); NEUTROPHILS # (AUTO) 7.7 (2.1-6.9); NEUTROPHILS % 79.5 % (38.7-80.0); PLATELET COUNT 261 x10e3/uL (140-360); RED BLOOD COUNT 2.77 x10e6/uL (4.3-5.7); RED CELL DISTRIBUTION WIDTH 12.7 % (11.7-14.4)
[2020-09-10 07:00] LABS: ANION GAP 10.8 mmol/L (8-16); BLOOD UREA NITROGEN 13 mg/dL (7-26); BUN/CREATININE RATIO 17 (6-25); CALCIUM 7.9 mg/dL (8.4-10.2); CARBON DIOXIDE 25 mmol/L (22-29); CHLORIDE 103 mmol/L (98-107); CREATININE, SERUM 0.77 mg/dL (0.72-1.25); EST GLOMERULAR FILTRATION RATE > 60 ML/MIN (60-); GLUCOSE 94 mg/dL (74-118); POTASSIUM 3.8 mmol/L (3.5-5.1); SODIUM 135 mmol/L (136-145)
[2020-09-10 08:49] VITALS: BP 123/68
[2020-09-10 08:53] VITALS: BP 123/68
[2020-09-10] MEDS: TAMSULOSIN HCL 0.4 MG CAP PO SCH (09:34)
[2020-09-10] MEDS: AMIODARONE HCL 200 MG TAB PO SCH (09:34)
[2020-09-10] MEDS: DOCUSATE SODIUM 100 MG CAP PO SCH (09:34)
[2020-09-10] MEDS: FAMOTIDINE 20 MG TAB PO SCH (09:34)
[2020-09-10] MEDS: BICALUTAMIDE 50 MG TABLET PO SCH (09:34)
[2020-09-10] MEDS: CYANOCOBALAMIN 1,000 MCG TAB PO SCH (09:35)
[2020-09-10 12:39] VITALS: BP 125/65
[2020-09-10 15:52] VITALS: BP 118/71
== END 2020-09-10 17:33 | disposition home or self-care (01) | DRG 871 ==
LOC: FSED 13:40 → ERHOLD 15:31 → MED/SURG 17:30 → ICU 09-04 06:19 → MED/SURG3 09-05 20:33
PROVIDERS: ADMIT Internal Medicine; ATTEND Internal Medicine
PROC: 0W993ZZ Drainage of Right Pleural Cavity, Percutaneous Approach (ICD-10-PCS; principal; 2020-09-02)
PROC: 02HV33Z Insertion of Infusion Device into Superior Vena Cava, Percutaneous Approach (ICD-10-PCS; 2020-09-03)
PROC: 5A1D70Z Performance of Urinary Filtration, Intermittent, Less than 6 Hours Per Day (ICD-10-PCS; 2020-09-03)
PROC: 0T9130Z Drainage of Left Kidney with Drainage Device, Percutaneous Approach (ICD-10-PCS; 2020-09-04)
PROC: 0T9030Z Drainage of Right Kidney with Drainage Device, Percutaneous Approach (ICD-10-PCS; 2020-09-04)
PROC: 30243N1 Transfusion of Nonautologous Red Blood Cells into Central Vein, Percutaneous Approach (ICD-10-PCS; 2020-09-08)
DX: A41.9 Sepsis, unspecified organism (principal); N18.6 End stage renal disease; E87.2 Acidosis; N17.9 Acute kidney failure, unspecified; N12 Tubulo-interstitial nephritis, not specified as acute or chronic; N39.0 Urinary tract infection, site not specified; J44.1 Chronic obstructive pulmonary disease with (acute) exacerbation; J90 Pleural effusion, not elsewhere classified; D68.9 Coagulation defect, unspecified; I12.0 Hypertensive chronic kidney disease with stage 5 chronic kidney disease or end stage renal disease; N13.6 Pyonephrosis; C61 Malignant neoplasm of prostate; B95.4 Other streptococcus as the cause of diseases classified elsewhere; R31.9 Hematuria, unspecified; D63.0 Anemia in neoplastic disease; E78.5 Hyperlipidemia, unspecified; N13.9 Obstructive and reflux uropathy, unspecified; D63.1 Anemia in chronic kidney disease; N40.0 Benign prostatic hyperplasia without lower urinary tract symptoms; E83.51 Hypocalcemia; N41.9 Inflammatory disease of prostate, unspecified; Z91.19 Patient's noncompliance with other medical treatment and regimen; E87.6 Hypokalemia; J44.9 Chronic obstructive pulmonary disease, unspecified; F17.200 Nicotine dependence, unspecified, uncomplicated; G47.00 Insomnia, unspecified; I48.0 Paroxysmal atrial fibrillation; Z99.2 Dependence on renal dialysis; Z20.828 Contact with and (suspected) exposure to other viral communicable diseases; E87.5 Hyperkalemia
CPT/HCPCS: 32555; 36415; 36556; 50430; 51700; 71045; 74176; 74470; 76770; 76937; 76942; 77001; 80048; 80053; 80061; 80076; 81003; 82270; 82607; 82728; 82746; 82945; 82948; 83036; 83540; 83605; 83615; 83735; 84100; 84152; 84157; 84443; 84466; 85025; 85610; 86705; 86706; 86850; 86900; 86920; 87040; 87070; 87086; 87116; 87205; 87206; 87340; 89051; 90962; 93005; 93306; 94640; 96374; 96375; 99152; 99153; 99284; J0690; J0696; J1644; J1756; J1940; J2001; J2250; J2270; J2405; J3010; J3475; J7030; J7050; P9016; Q9967; U0002

== ENCOUNTER 2020-10-12 10:34 | Emergency (ER) | payer MEDICARE ==
[~2020-10-12] VITALS: Ht 167.6 cm; Wt 73.9 kg
[~2020-10-12 10:34] MED LIST changes: +AZO1 EACH; +BICALUTAMIDE50 MG PO; +DICYCLOMINE HCL20 MG PO; +FLOMAX0.4 MG PO; +PRAVACHOL20 MG PO; +ULTRAM50 MG PO; +XTANDI40 MG
[2020-10-12 11:42] LABS: BASOPHILS % 0.2 % (0.0-1.0); HEMATOCRIT 28.7 % (38.2-49.6); HEMOGLOBIN 9.3 g/dL (14.0-18.0); LYMPHOCYTES # (AUTO) 0.4 (1.0-3.2); LYMPHOCYTES % 1.5 % (18.0-39.1); MEAN CORPUSCULAR HEMOGLOBIN 30.3 pg (28-32); MEAN CORPUSCULAR HGB CONC 32.4 g/dL (31-35); MEAN CORPUSCULAR VOLUME 93.5 fL (81-99); MONOCYTES % 3.8 % (4.4-11.3); NEUTROPHILS # (AUTO) 23.9 (2.1-6.9); NEUTROPHILS % 93.3 % (38.7-80.0); PLATELET COUNT 222 x10e3/uL (140-360); RED BLOOD COUNT 3.07 x10e6/uL (4.3-5.7); RED CELL DISTRIBUTION WIDTH 14.2 % (11.7-14.4)
[2020-10-12 11:44] LABS: CLARITY,URINE CLOUDY (CLEAR); COLOR,URINE YELLOW (YELLOW); KETONES,URINE NEGATIVE (NEGATIVE); LEUKOCYTE ESTERASE ,URINE LARGE (NEGATIVE); NITRITE,URINE NEGATIVE (NEGATIVE); PROTEIN,URINE DIPSTICK 2+ (NEGATIVE); URINE UROBILINOGEN 0.2 mg/dL (0.2 - 1)
[2020-10-12 11:47] LABS: BACTERIA,URINE MANY /HPF; WBC,URINE (MAN) >50 /HPF (0-5)
[2020-10-12 12:16] LABS: ALANINE AMINOTRANSFERASE 14 IU/L (0-55); ALBUMIN 2.3 g/dL (3.5-5.0); ALBUMIN/GLOBULIN RATIO 0.5 (0.8-2.0); ALKALINE PHOSPHATASE 66 IU/L (40-150); ANION GAP 16.2 mmol/L (8-16); BLOOD UREA NITROGEN 21 mg/dL (7-26); BUN/CREATININE RATIO 18 (6-25); CARBON DIOXIDE 23 mmol/L (22-29); CHLORIDE 95 mmol/L (98-107); CREATINE KINASE 34 IU/L (30-200); CREATININE, SERUM 1.18 mg/dL (0.72-1.25); EST GLOMERULAR FILTRATION RATE > 60 ML/MIN (60-); GLUCOSE 148 mg/dL (74-118); POTASSIUM 4.2 mmol/L (3.5-5.1); SODIUM 130 mmol/L (136-145)
[2020-10-12] MEDS ORDERED: SODIUM CHLORIDE 0.9% 1000ML 1,000 ML IV STA ×2 (12:21)
[2020-10-12] MEDS ORDERED: ASPIRIN 81 MG CHEW TAB PO ONE (12:30)
[2020-10-12] MEDS ORDERED: CEFTRIAXONE SOD 1 GM/NS 50 ML 50 ML IV SCH (12:30)
[2020-10-12] MEDS ORDERED: SODIUM CHLORIDE 0.9% 50ML 50 ML ONE (12:38)
[2020-10-12] MEDS ORDERED: IOPAMIDOL 370 MG/ML 200 ML INFUS..BTL INJ ONE (12:38)
[2020-10-12] MEDS ORDERED: ASPIRIN 81 MG CHEW TAB ONE (12:43)
[2020-10-12] MEDS ORDERED: CEFTRIAXONE SOD 1 GM/NS 50 ML 50 ML IV ONE (12:44)
[2020-10-12] MEDS ORDERED: ENOXAPARIN INJ 80 MG/0.8 ML SYR SC SCH (13:00)
[2020-10-12] MEDS ORDERED: WATER STERILE 10 ML VIAL ONE (13:02)
[2020-10-12] MEDS ORDERED: ETOMIDATE 2 MG/ML 10 ML INJ IV ONE (13:02)
[2020-10-12] MEDS ORDERED: SUCCINYLCHOLINE CHLORIDE 20 MG/ML 10ML VIAL ONE (13:02)
[2020-10-12] MEDS ORDERED: VECURONIUM BROMIDE FOR INJ 20 MG VIAL ONE (13:02)
[2020-10-12] MEDS ORDERED: ACETAMINOPHEN 325 MG TAB PO ONE (13:15)
[2020-10-12] MEDS ORDERED: ACETAMINOPHEN 325 MG TAB ONE (13:16)
[2020-10-12] MEDS ORDERED: NOREPINEPHRINE 8 MG/D5W 250 ML 250 ML ONE (14:29)
[2020-10-12] MEDS ORDERED: ALTEPLASE 50 MG/VIAL (29 MILLION IU) IV ONE ×2 (15:00)
[2020-10-12] MEDS ORDERED: ALTEPLASE 100 MG/VIAL ONE (15:03)
[2020-10-12] MEDS ORDERED: ETOMIDATE 2 MG/ML 10 ML INJ IV STA (15:27)
[2020-10-12] MEDS ORDERED: SUCCINYLCHOLINE 200 MG/10 ML SYR IV STA (15:27)
[2020-10-12] MEDS ORDERED: NOREPINEPHRINE INJ 4MG/4ML 8 MG in DEXTROSE 5% 250ML 250 ML IV STA (15:27)
[2020-10-12 16:26] VITALS: BP 101/58
[2020-10-12] MEDS ORDERED: ACETAMINOPHEN 325 MG TAB PO PRN (19:15)
[2020-10-12] MEDS ORDERED: ONDANSETRON HCL INJ 2MG/ML 2ML 2 MG/ML VIAL IV PRN (19:15)
[2020-10-12] MEDS ORDERED: TRAMADOL HCL 50 MG TAB PO PRN (19:15)
[2020-10-12] MEDS ORDERED: SIMVASTATIN 20 MG TAB PO SCH (21:00)
[2020-10-13] MEDS ORDERED: BICALUTAMIDE 50 MG TABLET PO SCH (09:00)
[2020-10-13] MEDS ORDERED: TAMSULOSIN HCL 0.4 MG CAP PO SCH (09:00)
== END 2020-10-12 17:00 | disposition short-term general hospital (02) ==
LOC: ER 11:01 → UNDOADMIN 12:50 → ERHOLD 12:50
DX: A41.9 Sepsis, unspecified organism (principal); R65.20 Severe sepsis without septic shock; I26.92 Saddle embolus of pulmonary artery without acute cor pulmonale; C61 Malignant neoplasm of prostate; N39.0 Urinary tract infection, site not specified; Z20.822 Contact with and (suspected) exposure to COVID-19; Z79.899 Other long term (current) drug therapy
CPT/HCPCS: 36415; 70450; 71045; 71260; 74177; 80053; 81001; 82550; 82553; 83605; 84484; 85025; 87040; 87071; 87186; 87205; 93971; 94002; 99285; J0330; J0696; J1650; J7030; Q9967; U0002

== ENCOUNTER 2020-10-23 19:35 | Emergency (ER) | payer MEDICARE ==
[~2020-10-23] VITALS: Ht 175.3 cm; Wt 68.5 kg
[2020-10-23 20:45] VITALS: BP 150/80
== END 2020-10-23 20:45 | disposition home or self-care (01) ==
LOC: FSED 20:09
DX: A41.9 Sepsis, unspecified organism (principal); N12 Tubulo-interstitial nephritis, not specified as acute or chronic; C61 Malignant neoplasm of prostate; Z79.2 Long term (current) use of antibiotics
CPT/HCPCS: 99282

== ENCOUNTER → 2020-12-27 | Outpatient (CLI) | payer MEDICARE ==
[~2020-12-27] MED LIST changes: +CIPRO500 MG PO; +ELIQUIS5 MG PO; +FENTANYL CITRATE/PF 100MCG/2 ML INJ ONE; +FOLIC ACID-VIT1 EACH PO; +IOPAMIDOL 300MG/ML 100 ML INFUS..BTL IV ONE; +LIDOCAINE HCL 1% LOCAL INJ 20 ML VIAL ONE; +METOPROLOL TART25 MG PO; +MIDAZOLAM HCL 2 MG/2 ML VIAL ONE; +PANTOPRAZOLE SO40 MG PO; +SODIUM CHLORIDE 0.9% 250ML 250 ML ONE
[2020-12-27 12:00] LABS: HEMOGLOBIN 7.3 g/dL (14.0-18.0)
[2020-12-27 12:23] LABS: INR 1.33; PROTHROMBIN TIME 17.2 seconds (11.9-14.5)
[2020-12-27 12:24] LABS: PARTIAL THROMBOPLASTIN TIME 48.4 seconds (23.8-35.5)
== END | disposition home or self-care (01) ==
LOC: DX 10:55
PROVIDERS: ATTEND Urology
DX: N13.5 Crossing vessel and stricture of ureter without hydronephrosis (principal); Z43.6 Encounter for attention to other artificial openings of urinary tract; T19.9XXD Foreign body in genitourinary tract, part unspecified, subsequent encounter
CPT/HCPCS: 36415; 50435; 85014; 85049; 85610; 85730; J2001; J2250; J3010; J7050; Q9967; 50431

== ENCOUNTER 2021-02-05 12:58 | Inpatient (IN) | payer MEDICARE ==
[~2021-02-05] VITALS: Ht 175.3 cm; Wt 68.5 kg
[~2021-02-05 12:58] MED LIST changes: -CIPRO500 MG PO; -ELIQUIS5 MG PO; -FENTANYL CITRATE/PF 100MCG/2 ML INJ ONE; -FOLIC ACID-VIT1 EACH PO; -IOPAMIDOL 300MG/ML 100 ML INFUS..BTL IV ONE; -LIDOCAINE HCL 1% LOCAL INJ 20 ML VIAL ONE; -METOPROLOL TART25 MG PO; -MIDAZOLAM HCL 2 MG/2 ML VIAL ONE; -PANTOPRAZOLE SO40 MG PO; -SODIUM CHLORIDE 0.9% 250ML 250 ML ONE
[2021-02-05] MEDS ORDERED: METOPROLOL TART25 MG PO (13:26)
[2021-02-05] MEDS ORDERED: PANTOPRAZOLE SO40 MG PO (13:26)
[2021-02-05] MEDS ORDERED: ELIQUIS5 MG PO (13:26)
[2021-02-05] MEDS ORDERED: FOLIC ACID-VIT1 EACH PO (13:26)
[2021-02-05 15:00] LABS: BASOPHILS % 0.2 % (0.0-1.0); HEMATOCRIT 25.8 % (38.2-49.6); HEMOGLOBIN 8.1 g/dL (14.0-18.0); LYMPHOCYTES # (AUTO) 0.3 (1.0-3.2); LYMPHOCYTES % 1.9 % (18.0-39.1); MEAN CORPUSCULAR HEMOGLOBIN 28.3 pg (28-32); MEAN CORPUSCULAR HGB CONC 31.4 g/dL (31-35); MEAN CORPUSCULAR VOLUME 90.2 fL (81-99); MONOCYTES # (AUTO) 0.6 (0.2-0.8); MONOCYTES % 3.5 % (4.4-11.3); NEUTROPHILS # (AUTO) 16.6 (2.1-6.9); NEUTROPHILS % 93.2 % (38.7-80.0); PLATELET COUNT 225 x10e3/uL (140-360); RED BLOOD COUNT 2.86 x10e6/uL (4.3-5.7)
[2021-02-05 15:03] LABS: KETONES,URINE 2+ (NEGATIVE); LEUKOCYTE ESTERASE ,URINE LARGE (NEGATIVE); NITRITE,URINE NEGATIVE (NEGATIVE); PROTEIN,URINE DIPSTICK >=300 (NEGATIVE); URINE UROBILINOGEN >=8 mg/dL (0.2 - 1)
[2021-02-05 15:13] LABS: CLARITY,URINE TURBID (CLEAR); COLOR,URINE BROWN (YELLOW)
[2021-02-05 15:14] LABS: BACTERIA,URINE MANY /HPF
[2021-02-05 15:16] LABS: ALBUMIN/GLOBULIN RATIO 0.7 (0.8-2.0); ANION GAP 16.7 mmol/L (8-16); CALCIUM 10.3 mg/dL (8.4-10.2); CREATININE, SERUM 2.26 mg/dL (0.72-1.25); POTASSIUM 4.7 mmol/L (3.5-5.1)
[2021-02-05] MEDS ORDERED: IOPAMIDOL 300MG/ML 100 ML INFUS..BTL IV ONE (15:20)
[2021-02-05] MEDS ORDERED: LIDOCAINE HCL 1% LOCAL INJ 20 ML VIAL ONE (15:20)
[2021-02-05] MEDS ORDERED: SODIUM CHLORIDE 0.9% 250ML 250 ML ONE (15:20)
[2021-02-05] MEDS ORDERED: CEFTRIAXONE SOD 1 GM VIAL ONE (15:40)
[2021-02-05] MEDS ORDERED: SODIUM CHLORIDE 0.9% 50ML 50 ML ONE (15:40)
[2021-02-05] MEDS ORDERED: CEFEPIME HCL 1 GM VIAL IV SCH (16:00)
[2021-02-05 16:36] LABS: CLARITY,URINE TURBID (CLEAR); COLOR,URINE ORANGE (YELLOW); LEUKOCYTE ESTERASE ,URINE LARGE (NEGATIVE); NITRITE,URINE POSITIVE (NEGATIVE); PROTEIN,URINE DIPSTICK >=300 (NEGATIVE)
[2021-02-05 16:37] LABS: KETONES,URINE 1+ (NEGATIVE); URINE UROBILINOGEN 2 mg/dL (0.2 - 1)
[2021-02-05 16:38] LABS: CLARITY,URINE TURBID (CLEAR); COLOR,URINE BROWN (YELLOW); KETONES,URINE 2+ (NEGATIVE); LEUKOCYTE ESTERASE ,URINE LARGE (NEGATIVE); NITRITE,URINE POSITIVE (NEGATIVE); PROTEIN,URINE DIPSTICK >=300 (NEGATIVE); URINE UROBILINOGEN >=8 mg/dL (0.2 - 1)
[2021-02-05 16:46] LABS: BACTERIA,URINE MANY /HPF
[2021-02-05 16:47] LABS: BACTERIA,URINE MANY /HPF; RBC,URINE 21-50 /HPF (0-5); WBC,URINE (MAN) 21-50 /HPF (0-5)
[2021-02-05 16:48] LABS: RBC,URINE >50 /HPF (0-5); WBC,URINE (MAN) >50 /HPF (0-5)
[2021-02-05] MEDS: CEFEPIME HCL 1GM 1 GM in SODIUM CHLORIDE 0.9% 50ML 50 ML IV SCH (18:55)
[2021-02-05] MEDS: SODIUM CHLORIDE 0.9% 1000ML 1,000 ML IV SCH (18:56)
[2021-02-05 19:02] VITALS: BP 90/47
[2021-02-05 21:00] VITALS: BP 95/54
[2021-02-05 22:25] VITALS: BP 95/54
[2021-02-06] VITALS (11 sets, daily range): BP systolic 91–109; BP diastolic 47–74
[2021-02-06] MEDS: CEFEPIME HCL 1GM 1 GM in SODIUM CHLORIDE 0.9% 50ML 50 ML IV SCH ×2 (03:35→16:00)
[2021-02-06] MEDS: SODIUM CHLORIDE 0.9% 1000ML 1,000 ML IV SCH ×3 (03:35→16:00)
[2021-02-06 04:58] LABS: BASOPHILS % 0.1 % (0.0-1.0); EOSINOPHILS % 0.1 % (0.0-6.0); HEMATOCRIT 22.3 % (38.2-49.6); HEMOGLOBIN 7.2 g/dL (14.0-18.0); LYMPHOCYTES # (AUTO) 0.5 (1.0-3.2); LYMPHOCYTES % 3.6 % (18.0-39.1); MEAN CORPUSCULAR HEMOGLOBIN 28.5 pg (28-32); MEAN CORPUSCULAR HGB CONC 32.3 g/dL (31-35); MEAN CORPUSCULAR VOLUME 88.1 fL (81-99); MONOCYTES # (AUTO) 0.8 (0.2-0.8); MONOCYTES % 5.7 % (4.4-11.3); NEUTROPHILS # (AUTO) 12.2 (2.1-6.9); NEUTROPHILS % 89.5 % (38.7-80.0); PLATELET COUNT 206 x10e3/uL (140-360); RED BLOOD COUNT 2.53 x10e6/uL (4.3-5.7)
[2021-02-06 05:17] LABS: ANION GAP 15.4 mmol/L (8-16); CALCIUM 9.7 mg/dL (8.4-10.2); CREATININE, SERUM 1.85 mg/dL (0.72-1.25); POTASSIUM 4.4 mmol/L (3.5-5.1)
[2021-02-06] MEDS ORDERED: TRAMADOL HCL 50 MG TAB PO PRN (07:30)
[2021-02-06] MEDS ORDERED: MAGNESIUM HYDROXIDE 30 ML UDC PO PRN (08:45)
[2021-02-06] MEDS ORDERED: BISACODYL 10 MG SUPP PR PRN (08:45)
[2021-02-06] MEDS: PANTOPRAZOLE SOD 40 MG TABEC PO SCH (09:00)
[2021-02-06] MEDS: SENNA-S TABLET PO SCH ×2 (09:00→16:22)
[2021-02-06] MEDS: APIXAB 2.5 MG TABLET PO SCH ×2 (09:00→16:26)
[2021-02-06] MEDS: BICALUTAMIDE 50 MG TABLET PO SCH (09:00)
[2021-02-06] MEDS: TAMSULOSIN HCL 0.4 MG CAP PO SCH ×2 (09:00→16:26)
[2021-02-06] MEDS: METOPROLOL TARTRATE 25 MG TAB PO SCH ×2 (09:00→16:26)
[2021-02-06] MEDS: SIMVASTATIN 20 MG TAB PO SCH (20:15)
[2021-02-07] MEDS: SODIUM CHLORIDE 0.9% 1000ML 1,000 ML IV SCH ×2 (00:22→08:00)
[2021-02-07] MEDS: CEFEPIME HCL 1GM 1 GM in SODIUM CHLORIDE 0.9% 50ML 50 ML IV SCH ×2 (03:58→16:00)
[2021-02-07 04:46] LABS: BASOPHILS % 0.3 % (0.0-1.0); EOSINOPHILS % 0.6 % (0.0-6.0); LYMPHOCYTES # (AUTO) 0.6 (1.0-3.2); LYMPHOCYTES % 9.3 % (18.0-39.1); MEAN CORPUSCULAR HGB CONC 30.4 g/dL (31-35); MONOCYTES # (AUTO) 0.3 (0.2-0.8); MONOCYTES % 4.9 % (4.4-11.3); NEUTROPHILS # (AUTO) 5.5 (2.1-6.9); NEUTROPHILS % 84.3 % (38.7-80.0); PLATELET COUNT 166 x10e3/uL (140-360); RED BLOOD COUNT 2.25 x10e6/uL (4.3-5.7)
[2021-02-07 04:56] LABS: HEMATOCRIT 20.7 % (38.2-49.6); HEMOGLOBIN 6.3 g/dL (14.0-18.0)
[2021-02-07 05:01] LABS: CALCIUM 9.3 mg/dL (8.4-10.2); CREATININE, SERUM 1.31 mg/dL (0.72-1.25)
[2021-02-07] MEDS ORDERED: SODIUM CHLORIDE 0.9% 250ML 250 ML IV ONE (05:15)
[2021-02-07 05:58] VITALS: BP 100/56
[2021-02-07 08:23] VITALS: BP 101/61
[2021-02-07] MEDS: TAMSULOSIN HCL 0.4 MG CAP PO SCH ×2 (09:00→17:00)
[2021-02-07] MEDS: APIXAB 2.5 MG TABLET PO SCH ×2 (09:00→17:00)
[2021-02-07] MEDS: METOPROLOL TARTRATE 25 MG TAB PO SCH ×2 (09:00→17:00)
[2021-02-07] MEDS: BICALUTAMIDE 50 MG TABLET PO SCH (09:00)
[2021-02-07] MEDS: PANTOPRAZOLE SOD 40 MG TABEC PO SCH (09:00)
[2021-02-07] MEDS: SENNA-S TABLET PO SCH ×2 (09:00→17:00)
[2021-02-07 09:02] VITALS: BP 101/61
[2021-02-07] MEDS ORDERED: SODIUM CHLORIDE 0.9% 250ML 250 ML ONE (10:03)
[2021-02-07 12:01] VITALS: BP 100/56
[2021-02-07 16:12] VITALS: BP 166/67
[2021-02-07 19:14] LABS: HEMATOCRIT 26.6 % (38.2-49.6); HEMOGLOBIN 8.5 g/dL (14.0-18.0)
[2021-02-07 20:00] VITALS: BP 118/62
[2021-02-07] MEDS: SIMVASTATIN 20 MG TAB PO SCH (20:33)
[2021-02-08] VITALS: BP 122/62
[2021-02-08 04:00] VITALS: BP 131/71
[2021-02-08 04:47] LABS: BASOPHILS % 0.1 % (0.0-1.0); EOSINOPHILS % 0.5 % (0.0-6.0); HEMATOCRIT 28.3 % (38.2-49.6); HEMOGLOBIN 9.2 g/dL (14.0-18.0); LYMPHOCYTES # (AUTO) 0.5 (1.0-3.2); LYMPHOCYTES % 6.2 % (18.0-39.1); MEAN CORPUSCULAR HEMOGLOBIN 28.3 pg (28-32); MEAN CORPUSCULAR HGB CONC 32.5 g/dL (31-35); MEAN CORPUSCULAR VOLUME 87.1 fL (81-99); MONOCYTES # (AUTO) 0.7 (0.2-0.8); MONOCYTES % 9.6 % (4.4-11.3); NEUTROPHILS # (AUTO) 6.3 (2.1-6.9); NEUTROPHILS % 82.7 % (38.7-80.0); PLATELET COUNT 161 x10e3/uL (140-360); RED BLOOD COUNT 3.25 x10e6/uL (4.3-5.7); RED CELL DISTRIBUTION WIDTH 14.8 % (11.7-14.4)
[2021-02-08 05:13] LABS: ANION GAP 16.6 mmol/L (8-16); BLOOD UREA NITROGEN 23 mg/dL (7-26); BUN/CREATININE RATIO 23 (6-25); CALCIUM 9.5 mg/dL (8.4-10.2); CARBON DIOXIDE 20 mmol/L (22-29); CHLORIDE 105 mmol/L (98-107); CREATININE, SERUM 0.98 mg/dL (0.72-1.25); EST GLOMERULAR FILTRATION RATE > 60 ML/MIN (60-); GLUCOSE 125 mg/dL (74-118); POTASSIUM 3.6 mmol/L (3.5-5.1); SODIUM 138 mmol/L (136-145)
[2021-02-08 07:52] VITALS: BP 122/65
[2021-02-08 08:06] VITALS: BP 122/65
[2021-02-08] MEDS: SENNA-S TABLET PO SCH (09:00)
[2021-02-08] MEDS: TAMSULOSIN HCL 0.4 MG CAP PO SCH (09:27)
[2021-02-08] MEDS: METOPROLOL TARTRATE 25 MG TAB PO SCH (09:28)
[2021-02-08] MEDS: PANTOPRAZOLE SOD 40 MG TABEC PO SCH (09:28)
[2021-02-08] MEDS: BICALUTAMIDE 50 MG TABLET PO SCH (09:29)
[2021-02-08] MEDS: APIXAB 2.5 MG TABLET PO SCH (09:29)
[2021-02-08] MEDS ORDERED: ELIQUIS5 MG PO (10:11)
[2021-02-08] MEDS ORDERED: CIPRO500 MG PO (10:43)
== END 2021-02-08 11:23 | disposition home or self-care (01) | DRG 699 ==
LOC: ER 13:43 → ERHOLD 16:12 → MED/SURG2 18:40
PROVIDERS: ADMIT Internal Medicine; ATTEND Internal Medicine
PROC: 30233N1 Transfusion of Nonautologous Red Blood Cells into Peripheral Vein, Percutaneous Approach (ICD-10-PCS; principal; 2021-02-07)
PROC: 0T25X0Z Change Drainage Device in Kidney, External Approach (ICD-10-PCS; 2021-02-07)
PROC: 0T25X0Z Change Drainage Device in Kidney, External Approach (ICD-10-PCS; 2021-02-07)
DX: T83.512A Infection and inflammatory reaction due to nephrostomy catheter, initial encounter (principal); N13.6 Pyonephrosis; N17.9 Acute kidney failure, unspecified; N13.8 Other obstructive and reflux uropathy; N99.524 Stenosis of incontinent stoma of urinary tract; T83.092A Other mechanical complication of nephrostomy catheter, initial encounter; C61 Malignant neoplasm of prostate; D64.9 Anemia, unspecified; N40.1 Benign prostatic hyperplasia with lower urinary tract symptoms; R31.0 Gross hematuria; B96.89 Other specified bacterial agents as the cause of diseases classified elsewhere; I12.9 Hypertensive chronic kidney disease with stage 1 through stage 4 chronic kidney disease, or unspecified chronic kidney disease; N18.9 Chronic kidney disease, unspecified
CPT/HCPCS: 36415; 50435; 74176; 74470; 76870; 80048; 80053; 81001; 83605; 85014; 85018; 85025; 86850; 86900; 86920; 87040; 87086; 87186; 93976; 99284; C1729; C1769; J0692; J0696; J2001; J7030; J7050; P9016; Q9967; U0002

== ENCOUNTER 2021-02-26 20:54 | Inpatient (IN) | payer MEDICARE ==
[~2021-02-26] VITALS: Ht 175.3 cm; Wt 68.0 kg
[2021-02-26] MEDS: SODIUM CHLORIDE 0.9% 1000ML 1,000 ML IV SCH (03:50)
[~2021-02-26 20:54] MED LIST changes: +CIPRO500 MG PO; +ELIQUIS5 MG PO; +FOLIC ACID-VIT1 EACH PO; +METOPROLOL TART25 MG PO; +PANTOPRAZOLE SO40 MG PO
[2021-02-26] MEDS ORDERED: CEFEPIME 1 GM in SODIUM CHLORIDE 0.9% 50ML 50 ML IV ONE (22:00)
[2021-02-26 22:05] LABS: BASOPHILS % 0.3 % (0.0-1.0); EOSINOPHILS % 0.3 % (0.0-6.0); HEMOGLOBIN 8.4 g/dL (14.0-18.0); LYMPHOCYTES # (AUTO) 0.5 (1.0-3.2); LYMPHOCYTES % 7.4 % (18.0-39.1); MEAN CORPUSCULAR HEMOGLOBIN 28.2 pg (28-32); MEAN CORPUSCULAR HGB CONC 31.1 g/dL (31-35); MEAN CORPUSCULAR VOLUME 90.6 fL (81-99); MONOCYTES # (AUTO) 0.5 (0.2-0.8); MONOCYTES % 6.5 % (4.4-11.3); NEUTROPHILS % 84.9 % (38.7-80.0); PLATELET COUNT 160 x10e3/uL (140-360); RED BLOOD COUNT 2.98 x10e6/uL (4.3-5.7); RED CELL DISTRIBUTION WIDTH 15.6 % (11.7-14.4)
[2021-02-26] MEDS ORDERED: ACETAMINOPHEN 325 MG TAB ONE (22:05)
[2021-02-26 22:12] LABS: CLARITY,URINE CLOUDY (CLEAR); COLOR,URINE YELLOW (YELLOW); KETONES,URINE NEGATIVE (NEGATIVE); LEUKOCYTE ESTERASE ,URINE LARGE (NEGATIVE); NITRITE,URINE POSITIVE (NEGATIVE); PROTEIN,URINE DIPSTICK >=300 (NEGATIVE); URINE UROBILINOGEN 1 mg/dL (0.2 - 1)
[2021-02-26 22:14] LABS: CLARITY,URINE TURBID (CLEAR); COLOR,URINE RED (YELLOW); LEUKOCYTE ESTERASE ,URINE LARGE (NEGATIVE); NITRITE,URINE POSITIVE (NEGATIVE); PROTEIN,URINE DIPSTICK >=300 (NEGATIVE)
[2021-02-26 22:15] LABS: KETONES,URINE 1+ (NEGATIVE); URINE UROBILINOGEN 1 mg/dL (0.2 - 1)
[2021-02-26 22:19] LABS: ALBUMIN 3.1 g/dL (3.5-5.0); ALBUMIN/GLOBULIN RATIO 0.7 (0.8-2.0); ALKALINE PHOSPHATASE 144 IU/L (40-150); ANION GAP 18.6 mmol/L (8-16); BLOOD UREA NITROGEN 18 mg/dL (7-26); BUN/CREATININE RATIO 9 (6-25); CALCIUM 10.4 mg/dL (8.4-10.2); CARBON DIOXIDE 25 mmol/L (22-29); CHLORIDE 98 mmol/L (98-107); CREATINE KINASE 21 IU/L (30-200); EST GLOMERULAR FILTRATION RATE 35 ML/MIN (60-); GLUCOSE 161 mg/dL (74-118); POTASSIUM 4.6 mmol/L (3.5-5.1); SODIUM 137 mmol/L (136-145)
[2021-02-26 22:20] LABS: ALANINE AMINOTRANSFERASE < 6 IU/L (0-55)
[2021-02-26 22:25] LABS: BACTERIA,URINE MANY /HPF
[2021-02-26 22:26] LABS: BACTERIA,URINE MANY /HPF
[2021-02-26] MEDS ORDERED: SODIUM CHLORIDE 0.9% 500ML 500 ML IV ONE (22:45)
[2021-02-26] MEDS ORDERED: ACETAMINOPHEN 325 MG TAB PO ONE (22:45)
[2021-02-26] MEDS ORDERED: ACETAMINOPHEN 325 MG TAB PO PRN (23:30)
[2021-02-26] MEDS ORDERED: ONDANSETRON HCL INJ 2MG/ML 2ML 2 MG/ML VIAL IV PRN (23:30)
[2021-02-26 23:37] LABS: CLARITY,URINE TURBID (CLEAR); COLOR,URINE RED (YELLOW)
[2021-02-26 23:38] LABS: KETONES,URINE 2+ (NEGATIVE); LEUKOCYTE ESTERASE ,URINE LARGE (NEGATIVE); NITRITE,URINE POSITIVE (NEGATIVE); PROTEIN,URINE DIPSTICK >=300 (NEGATIVE); URINE UROBILINOGEN >=8 mg/dL (0.2 - 1)
[2021-02-26 23:46] LABS: BACTERIA,URINE MANY /HPF; EPITHELIAL CELLS,URINE RARE /LPF; RBC,URINE >50 /HPF (0-5)
[2021-02-27] VITALS (11 sets, daily range): BP systolic 88–114; BP diastolic 53–60
[2021-02-27] MEDS: SODIUM CHLORIDE 0.9% 1000ML 1,000 ML IV SCH ×4 (03:50→23:49)
[2021-02-27] MEDS: CEFEPIME 1 GM in SODIUM CHLORIDE 0.9% 50ML 50 ML IV SCH ×3 (04:17→21:34)
[2021-02-27 06:35] LABS: BASOPHILS % 0.1 % (0.0-1.0); EOSINOPHILS % 0.4 % (0.0-6.0); HEMATOCRIT 25.5 % (38.2-49.6); HEMOGLOBIN 7.9 g/dL (14.0-18.0); LYMPHOCYTES # (AUTO) 0.5 (1.0-3.2); LYMPHOCYTES % 6.3 % (18.0-39.1); MEAN CORPUSCULAR HEMOGLOBIN 27.8 pg (28-32); MEAN CORPUSCULAR VOLUME 89.8 fL (81-99); MONOCYTES # (AUTO) 0.6 (0.2-0.8); MONOCYTES % 8.2 % (4.4-11.3); NEUTROPHILS # (AUTO) 6.3 (2.1-6.9); NEUTROPHILS % 83.9 % (38.7-80.0); PLATELET COUNT 146 x10e3/uL (140-360); RED BLOOD COUNT 2.84 x10e6/uL (4.3-5.7); RED CELL DISTRIBUTION WIDTH 15.3 % (11.7-14.4)
[2021-02-27 06:58] LABS: ALBUMIN 2.8 g/dL (3.5-5.0); ALBUMIN/GLOBULIN RATIO 0.7 (0.8-2.0); ALKALINE PHOSPHATASE 120 IU/L (40-150); ANION GAP 16.3 mmol/L (8-16); BLOOD UREA NITROGEN 19 mg/dL (7-26); BUN/CREATININE RATIO 11 (6-25); CALCIUM 10.2 mg/dL (8.4-10.2); CARBON DIOXIDE 24 mmol/L (22-29); CHLORIDE 101 mmol/L (98-107); CREATININE, SERUM 1.72 mg/dL (0.72-1.25); EST GLOMERULAR FILTRATION RATE 39 ML/MIN (60-); GLUCOSE 125 mg/dL (74-118); POTASSIUM 4.3 mmol/L (3.5-5.1); SODIUM 137 mmol/L (136-145)
[2021-02-27 07:00] LABS: ALANINE AMINOTRANSFERASE < 6 IU/L (0-55)
[2021-02-27] MEDS: TRAMADOL HCL 50 MG TAB PO PRN (16:40)
[2021-02-27] MEDS: PRAVASTATIN 20 MG TAB PO SCH (21:27)
[2021-02-27] MEDS: TAMSULOSIN HCL 0.4 MG CAP PO SCH (21:27)
[2021-02-28] VITALS (7 sets, daily range): BP systolic 92–103; BP diastolic 50–77
[2021-02-28] MEDS: CEFEPIME 1 GM in SODIUM CHLORIDE 0.9% 50ML 50 ML IV SCH ×3 (06:29→21:46)
[2021-02-28 07:50] LABS: BASOPHILS % 0.2 % (0.0-1.0); EOSINOPHILS % 0.4 % (0.0-6.0); LYMPHOCYTES # (AUTO) 0.4 (1.0-3.2); MEAN CORPUSCULAR HGB CONC 30.4 g/dL (31-35); MONOCYTES # (AUTO) 0.4 (0.2-0.8); MONOCYTES % 9.5 % (4.4-11.3); NEUTROPHILS # (AUTO) 3.7 (2.1-6.9); NEUTROPHILS % 80.2 % (38.7-80.0); PLATELET COUNT 126 x10e3/uL (140-360); RED CELL DISTRIBUTION WIDTH 15.8 % (11.7-14.4)
[2021-02-28 07:53] LABS: BLOOD UREA NITROGEN 21 mg/dL (7-26); BUN/CREATININE RATIO 13 (6-25); CALCIUM 9.7 mg/dL (8.4-10.2); CARBON DIOXIDE 23 mmol/L (22-29); CHLORIDE 102 mmol/L (98-107); CREATININE, SERUM 1.63 mg/dL (0.72-1.25); EST GLOMERULAR FILTRATION RATE 42 ML/MIN (60-); GLUCOSE 111 mg/dL (74-118); SODIUM 135 mmol/L (136-145)
[2021-02-28] MEDS ORDERED: PIPERACILLIN/TAZOBACTAM 3.375 GM in SODIUM CHLORIDE 0.9% 50ML 50 ML IV STA (08:05)
[2021-02-28 08:07] LABS: ALBUMIN 2.4 g/dL (3.5-5.0); ALBUMIN/GLOBULIN RATIO 0.7 (0.8-2.0); ALKALINE PHOSPHATASE 97 IU/L (40-150)
[2021-02-28 08:35] LABS: ALANINE AMINOTRANSFERASE < 6 IU/L (0-55)
[2021-02-28] MEDS: SODIUM CHLORIDE 0.9% 1000ML 1,000 ML IV SCH ×3 (08:47→22:00)
[2021-02-28] MEDS: PANTOPRAZOLE SOD 40 MG TABEC PO SCH (08:48)
[2021-02-28] MEDS: TAMSULOSIN HCL 0.4 MG CAP PO SCH ×2 (08:48→15:54)
[2021-02-28] MEDS ORDERED: APIXAB 2.5 MG TABLET PO SCH (09:00)
[2021-02-28] MEDS ORDERED: LACTULOSE SYRUP 20 GM/30 ML UDC PO PRN (14:15)
[2021-02-28] MEDS ORDERED: DOCUSATE SODIUM 100 MG CAP PO PRN (14:15)
[2021-02-28] MEDS ORDERED: LACTULOSE SYRUP 20 GM/30 ML UDC PO ONE (15:00)
[2021-02-28] MEDS ORDERED: DOCUSATE SODIUM 100 MG CAP PO ONE (15:00)
[2021-02-28] MEDS: FERROUS SULFATE 325 MG TAB PO SCH (15:54)
[2021-02-28] MEDS ORDERED: ONDANSETRON HCL 4 MG ORAL DISINTEGRATING TAB PO PRN (19:30)
[2021-02-28] MEDS: PRAVASTATIN 20 MG TAB PO SCH (21:00)
[2021-03-01] VITALS (8 sets, daily range): BP systolic 95–115; BP diastolic 53–59
[2021-03-01 05:59] LABS: BASOPHILS % 0.3 % (0.0-1.0); EOSINOPHILS # (AUTO) 0.1 (0.0-0.4); EOSINOPHILS % 2.9 % (0.0-6.0); LYMPHOCYTES # (AUTO) 0.5 (1.0-3.2); MEAN CORPUSCULAR HEMOGLOBIN 27.8 pg (28-32); MEAN CORPUSCULAR HGB CONC 31.3 g/dL (31-35); MONOCYTES # (AUTO) 0.4 (0.2-0.8); NEUTROPHILS # (AUTO) 2.4 (2.1-6.9); NEUTROPHILS % 69.6 % (38.7-80.0); PLATELET COUNT 114 x10e3/uL (140-360); RED BLOOD COUNT 2.41 x10e6/uL (4.3-5.7); RED CELL DISTRIBUTION WIDTH 15.3 % (11.7-14.4)
[2021-03-01] MEDS: CEFEPIME 1 GM in SODIUM CHLORIDE 0.9% 50ML 50 ML IV SCH (06:00)
[2021-03-01 06:27] LABS: ANION GAP 12.7 mmol/L (8-16); CALCIUM 9.5 mg/dL (8.4-10.2); CREATININE, SERUM 1.45 mg/dL (0.72-1.25); MEAN CORPUSCULAR VOLUME 88.8 fL (81-99); POTASSIUM 3.7 mmol/L (3.5-5.1)
[2021-03-01 06:28] LABS: HEMOGLOBIN 6.7 g/dL (14.0-18.0)
[2021-03-01 06:29] LABS: HEMATOCRIT 21.4 % (38.2-49.6)
[2021-03-01] MEDS: SODIUM CHLORIDE 0.9% 1000ML 1,000 ML IV SCH ×3 (07:20→23:30)
[2021-03-01] MEDS ORDERED: FUROSEMIDE INJ 10 MG/ML 2 ML VIAL IV PRN (07:30)
[2021-03-01] MEDS ORDERED: SODIUM CHLORIDE 0.9% 250ML 250 ML IV ONE (07:50)
[2021-03-01] MEDS: PANTOPRAZOLE SOD 40 MG TABEC PO SCH (08:00)
[2021-03-01] MEDS ORDERED: APIXAB 2.5 MG TABLET PO SCH (09:00)
[2021-03-01] MEDS: TAMSULOSIN HCL 0.4 MG CAP PO SCH ×2 (09:40→17:30)
[2021-03-01] MEDS: MEROPENEM 500MG/ NS 50ML 50 ML IV SCH ×2 (09:40→18:03)
[2021-03-01] MEDS: DOCUSATE SODIUM 100 MG CAP PO SCH (09:40)
[2021-03-01] MEDS: FERROUS SULFATE 325 MG TAB PO SCH ×2 (09:40→17:30)
[2021-03-01 15:28] LABS: INR 1.23; PROTHROMBIN TIME 16.2 seconds (11.9-14.5)
[2021-03-01] MEDS: EPOETIN ALFA-EPBX 10,000 UNIT/ML VIAL SC SCH (18:03)
[2021-03-01] MEDS ORDERED: SODIUM CHLORIDE 0.9% 250ML 250 ML ONE (18:16)
[2021-03-01] MEDS: PRAVASTATIN 20 MG TAB PO SCH (20:58)
[2021-03-02] VITALS (8 sets, daily range): BP systolic 106–120; BP diastolic 60–70
[2021-03-02] MEDS: MEROPENEM 500MG/ NS 50ML 50 ML IV SCH ×3 (02:20→17:56)
[2021-03-02 06:34] LABS: BASOPHILS % 0.4 % (0.0-1.0); EOSINOPHILS # (AUTO) 0.1 (0.0-0.4); EOSINOPHILS % 2.1 % (0.0-6.0); HEMATOCRIT 28.3 % (38.2-49.6); HEMOGLOBIN 9.1 g/dL (14.0-18.0); LYMPHOCYTES # (AUTO) 0.7 (1.0-3.2); LYMPHOCYTES % 14.1 % (18.0-39.1); MEAN CORPUSCULAR HEMOGLOBIN 28.3 pg (28-32); MEAN CORPUSCULAR HGB CONC 32.2 g/dL (31-35); MEAN CORPUSCULAR VOLUME 87.9 fL (81-99); MONOCYTES # (AUTO) 0.5 (0.2-0.8); MONOCYTES % 9.9 % (4.4-11.3); NEUTROPHILS # (AUTO) 3.5 (2.1-6.9); NEUTROPHILS % 66.6 % (38.7-80.0); PLATELET COUNT 126 x10e3/uL (140-360); RED BLOOD COUNT 3.22 x10e6/uL (4.3-5.7); RED CELL DISTRIBUTION WIDTH 15.2 % (11.7-14.4)
[2021-03-02 07:10] LABS: ALBUMIN 2.7 g/dL (3.5-5.0); ANION GAP 14.2 mmol/L (8-16); CALCIUM 9.8 mg/dL (8.4-10.2); CREATININE, SERUM 1.35 mg/dL (0.72-1.25); POTASSIUM 3.2 mmol/L (3.5-5.1)
[2021-03-02] MEDS: PANTOPRAZOLE SOD 40 MG TABEC PO SCH (07:30)
[2021-03-02] MEDS: FERROUS SULFATE 325 MG TAB PO SCH ×2 (08:51→17:37)
[2021-03-02] MEDS: TAMSULOSIN HCL 0.4 MG CAP PO SCH ×2 (09:16→17:37)
[2021-03-02] MEDS: SODIUM CHLORIDE 0.9% 1000ML 1,000 ML IV SCH ×2 (09:16→15:30)
[2021-03-02] MEDS: DOCUSATE SODIUM 100 MG CAP PO SCH (09:16)
[2021-03-02] MEDS ORDERED: POTASSIUM CHLORIDE 20 MEQ TAB CR PO NR (16:15)
[2021-03-02] MEDS: PRAVASTATIN 20 MG TAB PO SCH (20:25)
[2021-03-03] VITALS (8 sets, daily range): BP systolic 115–130; BP diastolic 62–71
[2021-03-03] MEDS: SODIUM CHLORIDE 0.9% 1000ML 1,000 ML IV SCH ×2 (00:54→09:06)
[2021-03-03] MEDS: MEROPENEM 500MG/ NS 50ML 50 ML IV SCH ×3 (02:14→18:26)
[2021-03-03] MEDS: PANTOPRAZOLE SOD 40 MG TABEC PO SCH (07:30)
[2021-03-03] MEDS: FERROUS SULFATE 325 MG TAB PO SCH ×2 (08:00→16:52)
[2021-03-03] MEDS ORDERED: APIXAB 2.5 MG TABLET PO SCH (09:00)
[2021-03-03] MEDS: DOCUSATE SODIUM 100 MG CAP PO SCH (09:06)
[2021-03-03] MEDS: TAMSULOSIN HCL 0.4 MG CAP PO SCH ×2 (09:06→16:52)
[2021-03-03] MEDS ORDERED: ENOXAPARIN SOD INJ 40 MG/0.4 ML SYR SC SCH (17:00)
[2021-03-03] MEDS: PRAVASTATIN 20 MG TAB PO SCH (20:52)
[2021-03-04] VITALS (10 sets, daily range): BP systolic 86–135; BP diastolic 49–73
[2021-03-04] MEDS: SODIUM CHLORIDE 0.9% 1000ML 1,000 ML IV SCH ×2 (02:31→21:54)
[2021-03-04] MEDS: MEROPENEM 500MG/ NS 50ML 50 ML IV SCH ×3 (02:31→18:00)
[2021-03-04 05:46] LABS: ANION GAP 13.7 mmol/L (8-16); BLOOD UREA NITROGEN 16 mg/dL (7-26); BUN/CREATININE RATIO 15 (6-25); CALCIUM 10.6 mg/dL (8.4-10.2); CARBON DIOXIDE 22 mmol/L (22-29); CHLORIDE 106 mmol/L (98-107); CREATININE, SERUM 1.08 mg/dL (0.72-1.25); EST GLOMERULAR FILTRATION RATE > 60 ML/MIN (60-); GLUCOSE 118 mg/dL (74-118); POTASSIUM 3.7 mmol/L (3.5-5.1); SODIUM 138 mmol/L (136-145)
[2021-03-04] MEDS ORDERED: METOPROLOL TARTRATE INJ 1 MG/ML VIAL IV PRN (06:30)
[2021-03-04] MEDS ORDERED: MIDAZOLAM HCL 2 MG/2 ML VIAL ONE (09:42)
[2021-03-04] MEDS ORDERED: FENTANYL CITRATE/PF 100MCG/2 ML INJ ONE (09:43)
[2021-03-04] MEDS: TAMSULOSIN HCL 0.4 MG CAP PO SCH ×2 (11:15→17:14)
[2021-03-04] MEDS: PANTOPRAZOLE SOD 40 MG TABEC PO SCH (11:15)
[2021-03-04] MEDS: FERROUS SULFATE 325 MG TAB PO SCH ×2 (11:15→17:14)
[2021-03-04 12:36] LABS: BASOPHILS % 0.2 % (0.0-1.0); EOSINOPHILS # (AUTO) 0.2 (0.0-0.4); EOSINOPHILS % 1.7 % (0.0-6.0); HEMATOCRIT 26.7 % (38.2-49.6); HEMOGLOBIN 8.5 g/dL (14.0-18.0); LYMPHOCYTES % 10.6 % (18.0-39.1); MEAN CORPUSCULAR HEMOGLOBIN 28.2 pg (28-32); MEAN CORPUSCULAR HGB CONC 31.8 g/dL (31-35); MEAN CORPUSCULAR VOLUME 88.7 fL (81-99); MONOCYTES # (AUTO) 0.6 (0.2-0.8); MONOCYTES % 6.1 % (4.4-11.3); NEUTROPHILS # (AUTO) 6.8 (2.1-6.9); NEUTROPHILS % 70.5 % (38.7-80.0); PLATELET COUNT 112 x10e3/uL (140-360); RED BLOOD COUNT 3.01 x10e6/uL (4.3-5.7); RED CELL DISTRIBUTION WIDTH 15.5 % (11.7-14.4)
[2021-03-04 12:58] LABS: INR 1.38; PROTHROMBIN TIME 17.6 seconds (11.9-14.5)
[2021-03-04] MEDS ORDERED: SODIUM CHLORIDE 0.9% 250ML 250 ML IV SCH (13:00)
[2021-03-04 13:07] LABS: ALANINE AMINOTRANSFERASE 7 IU/L (0-55); ALBUMIN 2.6 g/dL (3.5-5.0); ALBUMIN/GLOBULIN RATIO 0.7 (0.8-2.0); ALKALINE PHOSPHATASE 132 IU/L (40-150); BLOOD UREA NITROGEN 16 mg/dL (7-26); BUN/CREATININE RATIO 16 (6-25); CALCIUM 10.3 mg/dL (8.4-10.2); CARBON DIOXIDE 22 mmol/L (22-29); CHLORIDE 107 mmol/L (98-107); CREATININE, SERUM 1.03 mg/dL (0.72-1.25); EST GLOMERULAR FILTRATION RATE > 60 ML/MIN (60-); GLUCOSE 112 mg/dL (74-118); SODIUM 138 mmol/L (136-145)
[2021-03-04] MEDS: DOCUSATE SODIUM 100 MG CAP PO SCH (14:08)
[2021-03-04] MEDS: EPOETIN ALFA-EPBX 10,000 UNIT/ML VIAL SC SCH (17:14)
[2021-03-04] MEDS: TRAMADOL HCL 50 MG TAB PO PRN (19:45)
[2021-03-04] MEDS: PRAVASTATIN 20 MG TAB PO SCH (21:15)
[2021-03-04] MEDS ORDERED: LORAZEPAM 0.5 MG TAB PO ONE (23:00)
[2021-03-04 23:50] LABS: BASOPHILS # (AUTO) 0.1 (0.0-0.1); BASOPHILS % 0.3 % (0.0-1.0); EOSINOPHILS # (AUTO) 0.2 (0.0-0.4); EOSINOPHILS % 0.9 % (0.0-6.0); HEMATOCRIT 23.9 % (38.2-49.6); HEMOGLOBIN 7.5 g/dL (14.0-18.0); LYMPHOCYTES % 11.8 % (18.0-39.1); MEAN CORPUSCULAR HEMOGLOBIN 28.3 pg (28-32); MEAN CORPUSCULAR HGB CONC 31.4 g/dL (31-35); MEAN CORPUSCULAR VOLUME 90.2 fL (81-99); MONOCYTES # (AUTO) 0.7 (0.2-0.8); MONOCYTES % 4.3 % (4.4-11.3); NEUTROPHILS # (AUTO) 12.2 (2.1-6.9); NEUTROPHILS % 70.8 % (38.7-80.0); PLATELET COUNT 120 x10e3/uL (140-360); RED BLOOD COUNT 2.65 x10e6/uL (4.3-5.7); RED CELL DISTRIBUTION WIDTH 15.7 % (11.7-14.4)
[2021-03-05] MEDS ORDERED: HEPARIN 25,000 UNIT 1,300 UNIT in DEXTROSE 5% 250ML 250 ML IV SCH (00:45)
[2021-03-05] MEDS ORDERED: HEPARIN SOD (PORCINE) 5,000 UNIT/ML VIAL IV ONE (00:45)
[2021-03-05] MEDS ORDERED: HEPARIN 25,000 UNIT 25,000 UNIT in DEXTROSE 5% 250ML 250 ML IV SCH (01:00)
[2021-03-05] MEDS ORDERED: SODIUM CHLORIDE 0.9% 250ML 250 ML IV ONE (02:15)
[2021-03-05] MEDS: MEROPENEM 500MG/ NS 50ML 50 ML IV SCH ×2 (02:17→10:00)
[2021-03-05 02:24] LABS: INR 1.6; PROTHROMBIN TIME 19.8 seconds (11.9-14.5)
[2021-03-05] MEDS ORDERED: HEPARIN 25,000 UNIT DRIP IV ONE (02:55)
[2021-03-05] MEDS ORDERED: SODIUM CHLORIDE 0.9% 250ML 250 ML ONE (03:57)
[2021-03-05] MEDS: PANTOPRAZOLE SOD 40 MG TABEC PO SCH (07:30)
[2021-03-05] MEDS: FERROUS SULFATE 325 MG TAB PO SCH (08:00)
[2021-03-05 08:16] VITALS: BP 56/42
[2021-03-05] MEDS: DOCUSATE SODIUM 100 MG CAP PO SCH (09:00)
[2021-03-05] MEDS: TAMSULOSIN HCL 0.4 MG CAP PO SCH (09:00)
[2021-03-05] MEDS ORDERED: MEROPENEM 500 MG in SODIUM CHLORIDE 0.9% 50ML 50 ML IV SCH (18:00)
== END 2021-03-05 15:10 | disposition expired | DRG 871 ==
LOC: ER 21:49 → ERHOLD 23:27 → MED/SURG3 02-27 01:57
PROVIDERS: ADMIT Internal Medicine; ATTEND Internal Medicine
PROC: 30233N1 Transfusion of Nonautologous Red Blood Cells into Peripheral Vein, Percutaneous Approach (ICD-10-PCS; 2021-03-01)
PROC: 0FB13ZX Excision of Right Lobe Liver, Percutaneous Approach, Diagnostic (ICD-10-PCS; principal; 2021-03-04)
DX: A41.51 Sepsis due to Escherichia coli [E. coli] (principal); J96.01 Acute respiratory failure with hypoxia; J18.9 Pneumonia, unspecified organism; I50.31 Acute diastolic (congestive) heart failure; G93.41 Metabolic encephalopathy; N13.8 Other obstructive and reflux uropathy; N39.0 Urinary tract infection, site not specified; Z16.12 Extended spectrum beta lactamase (ESBL) resistance; C79.51 Secondary malignant neoplasm of bone; I13.0 Hypertensive heart and chronic kidney disease with heart failure and stage 1 through stage 4 chronic kidney disease, or unspecified chronic kidney disease; C78.7 Secondary malignant neoplasm of liver and intrahepatic bile duct; N17.9 Acute kidney failure, unspecified; C61 Malignant neoplasm of prostate; N18.30 Chronic kidney disease, stage 3 unspecified; E78.5 Hyperlipidemia, unspecified; Z93.6 Other artificial openings of urinary tract status; Z90.49 Acquired absence of other specified parts of digestive tract; Z82.49 Family history of ischemic heart disease and other diseases of the circulatory system; K59.00 Constipation, unspecified; B96.20 Unspecified Escherichia coli [E. coli] as the cause of diseases classified elsewhere; B95.7 Other staphylococcus as the cause of diseases classified elsewhere; K76.9 Liver disease, unspecified; G89.4 Chronic pain syndrome; K21.9 Gastro-esophageal reflux disease without esophagitis; K29.70 Gastritis, unspecified, without bleeding; D69.6 Thrombocytopenia, unspecified; I50.9 Heart failure, unspecified; D50.0 Iron deficiency anemia secondary to blood loss (chronic); Z66 Do not resuscitate; Z20.822 Contact with and (suspected) exposure to COVID-19
CPT/HCPCS: 36415; 47000; 71045; 71250; 74176; 74470; 76942; 80048; 80053; 81001; 82040; 82550; 82553; 82948; 83605; 84152; 84484; 85025; 85610; 85730; 86850; 86900; 86920; 87040; 87071; 87086; 87102; 87116; 87186; 87205; 87206; 88307; 88342; 93005; 93306; 93970; 96361; 99152; 99153; 99251; 99284; J0692; J1644; J1650; J1940; J2250; J2543; J3010; J7030; J7040; J7050; P9016; U0002